=== PATIENT | male | born 1950 | race Caucasian/White ===

== ENCOUNTER 2018-03-14 01:36 | Outpatient (CLI) | payer MEDICARE, SELFPAY ==
[2018-03-14 12:44] LABS: Hemoglobin A1C 6.3 % (4.5-6.2)
== END 2018-03-14 01:56 ==
PROVIDERS: PCP Family Medicine; Visit Provider Family Medicine
DX: E11.9 Type 2 diabetes mellitus without complications (principal)
CPT/HCPCS: 36415; 83036

== ENCOUNTER 2018-09-06 11:21 | Outpatient (CLI) | payer MEDICARE, SELFPAY ==
[2018-09-06 13:34] LABS: Anion Gap 9.6 mmol/L (3-11); BUN 16 mg/dL (7-18); CO2 27.4 mmol/L (21.0-32.0); CREATININE 1.11 mg/dL (0.70-1.30); Calcium 9.4 mg/dL (8.5-10.1); Chloride 103 mmol/L (98-107); Glucose 135 mg/dL (70-100); Potassium 4.1 mmol/L (3.5-5.1); Sodium 140 mmol/L (136-145)
[2018-09-06 14:10] LABS: Hemoglobin A1C 6.6 % (4.5-6.2)
== END 2018-09-06 11:41 ==
PROVIDERS: PCP Family Medicine; Visit Provider Family Medicine
DX: E11.9 Type 2 diabetes mellitus without complications (principal); I10 Essential (primary) hypertension
CPT/HCPCS: 36415; 80048; 83036

== ENCOUNTER 2019-10-04 01:06 | Outpatient (CLI) | payer MEDICARE, SELFPAY ==
[2019-10-04 11:23] LABS: Calculated LDL 106 mg/dL (<100); Cholesterol 171 mg/dL (<200); HDL Cholesterol 48 mg/dL (40-60); Triglyceride 89 mg/dL (<150)
== END 2019-10-04 01:26 ==
PROVIDERS: PCP Family Medicine; Visit Provider Family Medicine
DX: I25.10 Atherosclerotic heart disease of native coronary artery without angina pectoris (principal); E11.9 Type 2 diabetes mellitus without complications
CPT/HCPCS: 36415; 80061

== ENCOUNTER 2020-08-13 03:37 | Outpatient (CLI) | payer MEDICARE, SELFPAY ==
[2020-08-13 12:53] LABS: Hemoglobin A1C 7.2 % (<5.7)
[2020-08-13 12:57] LABS: Calculated LDL 81 mg/dL (<100); Cholesterol 152 mg/dL (<200); HDL Cholesterol 48 mg/dL (40-60); Triglyceride 118 mg/dL (<150)
[2020-08-13 13:14] LABS: Magnesium 2.1 mg/dL (1.8-2.4); Vitamin B12 752 pg/mL (193-986)
[2020-08-13 21:58] LABS: PSA, Screening 0.7 ng/mL (0.0-4.5)
== END 2020-08-13 03:38 | disposition home or self-care (01) ==
LOC: LOS 03:37
PROVIDERS: PCP Nurse Practitioner Family; Visit Provider Internal Medicine Cardiovascular Disease
DX: E11.9 Type 2 diabetes mellitus without complications (principal); E78.9 Disorder of lipoprotein metabolism, unspecified; I25.10 Atherosclerotic heart disease of native coronary artery without angina pectoris; N13.8 Other obstructive and reflux uropathy; N40.1 Benign prostatic hyperplasia with lower urinary tract symptoms; Z12.5 Encounter for screening for malignant neoplasm of prostate; Z79.899 Other long term (current) drug therapy
CPT/HCPCS: 36415; 80061; 84153; 82607; 83036; 83735

== ENCOUNTER → 2020-09-05 08:34 | Outpatient (BNVA) | payer MEDICARE, SELFPAY | PROVIDERS: PCP Nurse Practitioner Family; Referring Provider Nurse Practitioner Family; Visit Provider Physical Therapy Assistant | DX: R09.89 Other specified symptoms and signs involving the circulatory and respiratory systems (principal); Z12.11 Encounter for screening for malignant neoplasm of colon; E11.9 Type 2 diabetes mellitus without complications; Z79.84 Long term (current) use of oral hypoglycemic drugs | CPT/HCPCS: 99203 ==

== ENCOUNTER 2020-09-14 23:43 | Inpatient (IN) | payer MEDICARE, SELFPAY ==
--- NOTE | 2020-09-14 23:30 | RT.EKG_ITS ---
APPROVED REPORT Exam: Resting ECG Patient Location: E HR:60 bpm ECG Measurements Heart Rate [address] 151 P 46 QRSd 100 QRS 85 QT 407 T 75 QTc 409 Conclusion Sinus rhythm...normal P axis, V-rate 60- 99 Normal [place] No STEMI I have reviewed and interpreted ECG and agree with software generated interpretation.
--- NOTE | 2020-09-14 23:44 | W.ED.GENAD ---
Discharge Plan Disposition Patient Disposition: [facility] INPATIENT Condition: Stable Discharge Details Clinical Impression: Acute non-ST elevation myocardial infarction (NSTEMI) Primary Care Provider: Serene Bales ED Provider: Jon Goldsmith Vernon Corey and New Rx's Prescriptions: No Action bisacodyl [Dulcolax (bisacodyl)] 5 mg tablet,delayed release (DR/EC) 5 mg PO ONCE Qty: 4 RF: 0 polyethylene glycol 3350 17 gram/dose powder 238 g PO ONCE Qty: 238 RF: 0 pneumococcal 23-susanna ps vaccine 25 mcg/0.5 mL solution 0.5 ml IM ONCE Qty: 0.5 RF: 0 amlodipine 5 mg tablet 5 mg PO QHS Qty: 90 RF: 4 tamsulosin 0.4 mg capsule 0.8 mg PO DAILY Qty: 180 RF: 4 atorvastatin 80 mg tablet 80 mg PO DAILY Qty: 90 RF: 4 clopidogrel [Plavix] 75 mg tablet 75 mg PO DAILY Qty: 90 RF: 4 nitroglycerin 0.4 mg tablet, sublingual 0.4 mg Sublingual PRN MDD 3 tab Qty: 90 RF: 4 metoprolol succinate 50 mg tablet extended release 24 hr 50 - 75 mg PO BID Qty: 230 RF: 4 ezetimibe [Zetia] 10 mg tablet 10 mg PO DAILY RF: 0 metformin 500 mg tablet 500 mg PO BID Qty: 180 RF: 4 aspirin [Aspir-81] 81 MG tablet,delayed release (DR/EC) 81 mg PO DAILY RF: 0 Medical Decision Making Patient presenting to ED with chest pressure radiating to the neck that started at rest. Similar event 2 nights ago. Has had increased exertional angina over the last couple weeks. Vital signs look good. Pulse strong. Lungs clear. No STEMI noted on EKG. IV established and laboratory studies obtained. Chest x-ray ordered. Aspirin and nitroglycerin given. 01:10 - Patient with elevated troponin consistent with NSTEMI. Pain-free after 2 sublingual nitroglycerin. Vital signs remained stable. Other laboratory studies are significant is elevated white count 14.5 and some renal insufficiency with a creatinine of 1.4. Potassium slightly up at 5.3, no EKG changes. Heparin per ACS protocol ordered. Nitroglycerin paste applied to chest wall. Call placed to [facility] to arrange for transfer. [facility] without floor or stepdown beds currently. Patient does not require ICU at [facility]. He is pain-free and stable so plan will be to keep here until bed available at [facility]. Per cardiology recommendations 300 mg of Plavix given. Nitropaste discontinued and nitroglycerin drip started so that can monitor need for escalating doses if recurrent chest pain which would be indication for urgent transfer. Patient and aware of plan. Patient not overly happy regarding needing to stay or be transferred. However, he is electing to stay at this point. Case discussed with hospitalist here and patient will be admitted to ICU for monitoring until bed available at [facility]. Medical Records Medical records reviewed: Yes I reviewed the patient's medical records. Medical records narrative: Status post three-vessel CABG with subsequent 3 stents over the course of years Imaging Data Radiologic Study: Attestation: I personally reviewed and interpreted this imaging study as follows: Imaging: X-Ray My impression: nothing acute Radiologist's impression: FINDINGS: Lungs: Unremarkable. No consolidation. Pleural spaces: Unremarkable. No pleural effusion. No pneumothorax. Heart/Mediastinum: Surgical clips within mediastinum. Bones/joints: Status post thoracotomy via mid sternotomy. IMPRESSION: No infiltrates or effusions. Dictated and Authenticated by: Matty Ivey MD. Lab Data Lab results reviewed: Yes I reviewed the patient's lab results. Lab results narrative: Positive troponin indicating NSTEMI. ECG Data Attestation: I personally reviewed and interpreted this ECG (s) as follows: Prior ECG tracings: not available for review Interpretation: see EKG HPI General Mode of arrival: ambulatory. Date/Time Provider Initiated Documentation: 09/14/20 23:44. Limitations to Documentation: no limitations. Information obtained by: patient, RN notes reviewed and old records reviewed. HPI Narrative: Patient presents to ED with complaint of chest pain. Patient was seen by his claim clinician down at [facility] mid-July. At that time he was doing well with minimal episodes of chest pain usually with exertion. He has had a three-vessel CABG and has 8 stents from previous catheterizations. Patient reports that in the last couple of weeks he has noticed more episodes of chest pain with less exertion. Typically, he is able to rest and it resolves. 2 nights ago he had angina/chest pain most of the night at rest. [place] good today but developed substernal chest pressure radiating to the neck while watching TV this evening. Took the last 2 nitroglycerin he had at home with no real relief. [place] okay while his was driving him here but had recurrent pain and pressure couple minutes prior to getting here. Developed nausea and vomited once here. Some diaphoresis at home. No shortness of breath. No fever or cough. No leg pain or leg swelling. Does not take his aspirin like he is supposed to. Does take his Plavix. Related Data Home Medications Medication Instructions Recorded Confirmed aspirin [Aspir 81] 81 mg PO DAILY 03/10/13 09/05/20 atorvastatin 80 mg tablet 80 mg PO DAILY #90 tab-cap 02/19/20 09/05/20 clopidogrel 75 mg tablet 75 mg PO DAILY #90 tab-cap 02/19/20 09/05/20 nitroglycerin 0.4 mg sublingual 0.4 mg SUBLINGUAL PRN #90 tab-cap 02/20/20 09/05/20 tablet MDD 3 tab ezetimibe 10 mg tablet 10 mg PO DAILY 05/29/20 09/05/20 metoprolol succinate 50 mg 50 - 75 mg PO BID #230 tab 05/29/20 09/05/20 tablet,extended release 24 hr amlodipine 5 mg tablet 5 mg PO QHS #90 tab 06/21/20 09/05/20 tamsulosin 0.4 mg capsule 0.8 mg PO DAILY #180 tab-cap 06/21/20 09/05/20 metformin 500 mg tablet 500 mg PO BID #180 tab-cap 08/23/20 09/05/20 bisacodyl 5 mg tablet,delayed 5 mg PO ONCE #4 tab 09/05/20 09/05/20 release polyethylene glycol 3350 17 238 g PO ONCE #238 g 09/05/20 09/05/20 gram/dose oral powder Previous Rx's Medication Instructions Recorded atorvastatin 80 mg tablet 80 mg PO DAILY #90 tab-cap 02/19/20 clopidogrel 75 mg tablet 75 mg PO DAILY #90 tab-cap 02/19/20 nitroglycerin 0.4 mg sublingual 0.4 mg SUBLINGUAL PRN #90 tab-cap 02/20/20 tablet MDD 3 tab metoprolol succinate 50 mg 50 - 75 mg PO BID #230 tab 05/29/20 tablet,extended release 24 hr amlodipine 5 mg tablet 5 mg PO QHS #90 tab 06/21/20 tamsulosin 0.4 mg capsule 0.8 mg PO DAILY #180 tab-cap 06/21/20 metformin 500 mg tablet 500 mg PO BID #180 tab-cap 08/23/20 bisacodyl 5 mg tablet,delayed 5 mg PO ONCE #4 tab 09/05/20 release polyethylene glycol 3350 17 238 g PO ONCE #238 g 09/05/20 gram/dose oral powder Allergies Allergy/AdvReac Type Severity Reaction Status Date / Time morphine AdvReac Nausea Unverified 09/05/20 08:36 Review of Systems Narrative: 02/27 Review of Systems completed and is negative except as stated above in HPI (Systems reviewed: Const, Eyes, ENT, Resp, CV, GI, , MSK, Skin, Neuro) [facility] Medical History CAD (coronary artery disease) Followed by [facility] [place] Cardiology Essential hypertension Gout Hearing loss Hyperlipidemia Obesity Type 2 diabetes mellitus Surgical History S/P appendectomy 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) KNIGHT to LAD, saphenous vein graft to OM and to PDA Family History Mother Stroke Father Diabetes Essential hypertension Heart disease Hyperlipidemia Stroke Sister No problems noted. Brother Diabetes Essential hypertension Hyperlipidemia Brother No problems noted. Son No problems noted. Daughter No problems noted. Daughter No problems noted. Maternal Grandfather , 65 Lung cancer Maternal Grandmother , 72 Diabetes Paternal Grandfather , 76 Stroke Paternal Grandmother , 95 No problems noted. Social History Smoking/Tobacco Use Status: Never Smoking risk assessment performed?: Yes Alcohol Intake: never Drug use: Never Substance use type: does not use Household members: spouse Pets and animals: Yes Pets and animals: cat(s) What type of physical activity do you participate in: none Special stephanie needs: No Do you feel safe at home: Yes Do you feel safe in your relationship?: Yes Exam Narrative Exam Narrative: Const: Obese male in NAD. HEENT: NC/AT. Normal facial exam. Eyes: Normal conjunctiva and sclera. Neck: Supple. Trachea midline. Lungs: Normal respiratory effort. Lungs are clear. Cor: RRR without murmur/gallop. Good radial pulses. GI: Soft. NT/ND. No guarding or rebound. Neuro: A+O x 3. Normal speech, mentation, gait. Cranial nerves II - XII grossly intact. No gross motor or sensory deficit. Ext: No C/C/E. No calf tenderness. Skin: Warm and dry without rash. Critical Care Time Critical Care Time Critical Care Time: Yes Total Critical Care Time: 45 Attestation: Upon my evaluation, this patient had a high probability of imminent or life-threatening deterioration, which required my direct attention, intervention, and personal management. I have personally provided 45 minutes of critical care time exclusive of time spent on separately billable procedures. Time includes review of laboratory data, radiology results, discussion with consultants, and monitoring for potential decompensation. Interventions were performed as documented above.
--- NOTE | 2020-09-14 23:45 | DI.RAD_ITS ---
Exam(s) XR PORTABLE CHEST AP EXAM: XR PORTABLE CHEST AP CLINICAL HISTORY: chest pain TECHNIQUE: 2D digital imaging was performed. COMPARISON: CR CHEST 2 VIEWS PA,LAT from 12/10/2014 CR,RF BARIUM SWALLOW W PA LAT CXR from 03/05/2016 FINDINGS: MEDIASTINUM: Normal. HEART: Normal. The patient is status post CABG. PULMONARY VASCULATURE: Normal. LUNGS: Clear. PLEURAL SPACE: No pleural effusion or pneumothorax. BONE:Within normal limits for the patient's age. OTHER FINDINGS:Normal. IMPRESSION: No acute pulmonary findings. DATA REPOSITORY: RADIATION DOSE DELIVERED:
[2020-09-14 23:50] VITALS: BP 130/68; PULSE 61; RESP 21; TEMP 36.3; O2SAT 100
[2020-09-14 23:59] VITALS: PULSE 59; RESP 23; O2SAT 99
[2020-09-15] VITALS (74 sets, daily range): BP systolic 101–139; BP diastolic 51–90; PULSE 49–80; RESP 0–33; TEMP 35.8–36.1; O2SAT 91–99
[2020-09-15 00:10] LABS: Abs Immature Grans 0.03 10^3/uL (0.0-0.06); Absolute Monocyte Count 1.56 10^3/uL (0.1-0.8); Basophils % 0.8; Eosinophils % 6.7; HCT 45.2 % (40.0-50.0); HGB 14.3 g/dL (13.5-17.5); Immature Grans % 0.2; Lymphocytes % 33.5; MCHC 31.6 % (32.0-36.0); MCV 85.4 fL (80-95); MPV 10.5 fL (8.0-11.0); Monocytes % 10.7; Neutrophils % 48.1; Nucleated RBC 0 %; Platelet Count 304 10^3/uL (130-400); RBC 5.29 10^6/uL (4.36-5.78); RDW 13.5 % (11.8-14.1); RDW-SD 42.4 fL; WBC 14.58 10^3/uL (4.4-10.8)
[2020-09-15 00:11] LABS: Absolute Basophil Count 0.12 10^3/uL (0.0-0.2); Absolute Eosinophil Count 0.98 10^3/uL (0.0-0.7); Absolute Lymphocyte Count 4.88 10^3/uL (1.2-3.4); Absolute Neutrophil Count 7.01 10^3/uL (1.2-6.7)
[2020-09-15 00:12] LABS: Diff Comment Agrees w/ Instrument; RBC Morphology Normal
[2020-09-15] MEDS: Aspirin 81 MG CHEW 324 MG CH (00:12)
[2020-09-15] MEDS: nitroGLYcerin 0.4 MG TAB SL ×2 (00:13→00:21)
[2020-09-15 00:32] LABS: ALT 32 U/L (16-63); AST 29 U/L (15-37); Albumin 3.7 g/dL (3.4-5.0); Alkaline Phosphatase 105 U/L (46-116); Anion Gap 11.5 mmol/L (3-11); BUN 23 mg/dL (7-18); Bilirubin, Total 0.5 mg/dL (0.2-1.0); CO2 25.5 mmol/L (21.0-32.0); CREATININE 1.4 mg/dL (0.70-1.30); Calcium 9.4 mg/dL (8.5-10.1); Chloride 104 mmol/L (98-107); Glucose 140 mg/dL (74-106); Magnesium 1.8 mg/dL (1.8-2.4); Potassium 5.3 mmol/L (3.5-5.1); Sodium 141 mmol/L (136-145); Total Protein 7.4 g/dL (6.4-8.2)
[2020-09-15 00:35] LABS: Troponin I 1.14 ng/mL (<0.06)
--- NOTE | 2020-09-15 00:52 | DI.VRAD_ITS ---
PROCEDURE INFORMATION: Exam: XR Chest Exam date and time: 09/14/2020 11:59 PM Age: 69 years old Clinical indication: Chest pain; Prior surgery; Additional info: Cardiac HX TECHNIQUE: Imaging protocol: XR of the chest. Views: 1 view. COMPARISON: RF BARIUM SWALLOW W PA LAT CXR 03/05/2016 9:08 AM FINDINGS: Lungs: Unremarkable. No consolidation. Pleural spaces: Unremarkable. No pleural effusion. No pneumothorax. Heart/Mediastinum: Surgical clips within mediastinum. Bones/joints: Status post thoracotomy via mid sternotomy. IMPRESSION: No infiltrates or effusions. Dictated and Authenticated by: Matty Ivey MD. Ordering:RAMANDEEP Webb MD
[2020-09-15] MEDS: Heparin 5,000 UNITS/ML VIAL 5000 UNITS (01:12)
[2020-09-15] MEDS: Clopidogrel 300 MG TAB PO (01:29)
[2020-09-15 01:32] LABS: Prothrombin Time 10.1 sec (9.3-11.0)
--- NOTE | 2020-09-15 01:32 | HPE_ITS ---
Date of service: 09/15/20 Time of Service: 01:33 Assessment and Plan Assessment and plan (1) Acute non-ST elevation myocardial infarction (NSTEMI): Start date: 09/15/20 Status: Acute Assessment and plan: This is a 69-year-old gentleman who was admitted through the ED with a non-STEMI and recent history of escalating exertional angina and then resting angina just prior to admission. Trended troponins has been revealing a slightly elevation in the troponin levels as he awaits transfer to [facility] for evaluation and treatment. He is asymptomatic and a slight trend may be secondary to the events prior to treatment with patient presently stable on heparin infusion and nitroglycerin infusion. He has slight alterations in his renal function being a diabetic and his potassium is slightly elevated possibly secondary to same renal insufficiency. He does have diabetes which is treated with oral therapy and is on maximum dose of statin. He has been loaded with aspirin and Plavix. He is awaiting bed with transfer accepted by Dr. Delaney. Patient will be transferred via ambulance with ACLS protocol when bed available. He is a full code. (2) CAD (coronary artery disease): Status: Chronic Assessment and plan: Patient has a significant history of CAD with initial diagnosis during an exercise stress test done because of his age. This resulted in CABG x3 and subsequent stenting with 8 stents by history through the ED. His risk factors have advanced and he is on treatment for risk factors with variable control. After evaluation and treatment patient needs to work harder on cardiovascular risk control. Qualifiers: Coronary Disease-Associated Artery/Lesion type: [place] artery [place] vs. transplanted heart: [place] heart Associated angina: with unstable angina Qualified Code(s): I25.110 - Atherosclerotic heart disease of [place] coronary artery with unstable angina pectoris (3) Type 2 diabetes mellitus: Status: Chronic Assessment and plan: Will hold Metformin and initiate IV hydration with slight renal sufficiency. Glucometers before meals and at bedtime with sliding scale short acting insulin coverage. Qualifiers: Diabetes mellitus director long term care insulin use: without chcf use Diabetes mellitus complication status: with circulatory complication Diabetes mellitus complication detail: with other circulatory complications Qualified Code(s): E11.59 - Type 2 diabetes mellitus with other circulatory complications (4) Essential hypertension: Status: Chronic Assessment and plan: Controlled with patient on beta-heather which will be continued as split dose. History of Present Illness History of Present Illness Chief Complaint: Chest pain with associated symptoms Narrative: This is a 69-year-old male patient who presented to ED with a 2-week history of increasing episodes of exertional chest pain and 2 days prior to admission resting chest pain with associated symptoms which occurred in the evening and most of the night. The day of admission the patient had substernal chest pressure radiating into his neck in the evening while watching TV. He to ok his last 2 nitroglycerin at home and felt no relief. In the ED had 2 nitroglycerin sublingually which gave him complete relief of his chest pressure and pain. He was driven to the ED by his . The patient did have nausea with vomiting in the ED and slight diaphoresis at home but no dyspnea, fever or cough. He has had no recent edema though he has gained about 15 pounds over the last couple of months. He has been having less activity. Patient last saw his data base administrator at [facility] July 2020. At that time he was having minimal episodes of exertional chest pressure. 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 Stress test was positive and he was seen at [facility] immediately with eventual CABG x3 with this being more than a decade ago. Since then he has had subsequent studies with [address] [facility]. His cardiac risk factors include hypertension and diabetes as well as truncal obesity. He is more sedentary recently since r etired. The patient was seen in the ED and found to have a normal EKG but positive troponins with slightly elevated WBC and slightly elevated potassium level with elevation of his creatinine. He was admitted for IV heparin infusion after loading dose of Plavix with patient already on Plavix chronically and loading dose of aspirin with patient already on aspirin chronically. The patient was also initiated on a nitroglycerin drip though he was chest pain-free. He was placed on Nitropaste initially in the ED. He does take atorvastatin at the maximum dose. He was accepted at [facility] by Dr. Delaney and is awaiting an opening bed for transfer. He is a full code. Review of Systems Narrative: 13 point review of systems otherwise unrevealing or stable. [facility] Medical History CAD (coronary artery disease) Followed by [facility] Cardiology Essential hypertension Gout Hearing loss Hyperlipidemia Obesity Type 2 diabetes mellitus Surgical History S/P appendectomy 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) KNIGHT to LAD, saphenous vein graft to OM and to PDA Family History Mother Stroke Father Diabetes Essential hypertension Heart disease Hyperlipidemia Stroke Sister No problems noted. Brother Diabetes Essential hypertension Hyperlipidemia Brother No problems noted. Son No problems noted. Daughter No problems noted. Daughter No problems noted. Maternal Grandfather , 65 Lung cancer Maternal Grandmother , 72 Diabetes Paternal Grandfather , 76 Stroke Paternal Grandmother , 95 No problems noted. Social History Smoking/Tobacco Use Status: Never Smoking risk assessment performed?: Yes Alcohol Intake: never Drug use: Never Substance use type: does not use Household members: spouse Pets and animals: Yes Pets and animals: cat(s) What type of physical activity do you participate in: none Special stephanie needs: No Do you feel safe at home: Yes Do you feel safe in your relationship?: Yes Meds Allergies and Home Medications Allergies Allergy/AdvReac Type Severity Reaction Status Date / Time morphine AdvReac Nausea Unverified 09/15/20 01:31 Home Medications Medication Instructions Recorded Confirmed Type pneumococcal 23-susanna ps vaccine 25 0.5 ml IM ONCE #0.5 ml 03/10/19 Clinic mcg/0.5 mL injection solution atorvastatin 80 mg tablet 80 mg PO DAILY #90 tab-cap 02/19/20 09/15/20 Rx clopidogrel 75 mg tablet 75 mg PO DAILY #90 tab-cap 02/19/20 09/15/20 Rx nitroglycerin 0.4 mg sublingual 0.4 mg SUBLINGUAL PRN #90 tab-cap 02/20/20 09/15/20 Rx tablet MDD 3 tab ezetimibe 10 mg tablet 10 mg PO DAILY 05/29/20 09/15/20 History metoprolol succinate 50 mg 50 - 75 mg PO BID #230 tab 05/29/20 09/15/20 Rx tablet,extended release 24 hr tamsulosin 0.4 mg capsule 0.8 mg PO DAILY #180 tab-cap 06/21/20 09/15/20 Rx metformin 500 mg tablet 500 mg PO BID #180 tab-cap 08/23/20 09/15/20 Rx amlodipine 5 mg PO BID 09/15/20 09/15/20 History Exam Narrative Exam Narrative: General: Patient appears appropriate for age, alert and oriented x3 and in no acute distress. He is moderately obese especially over the trunk. HEENT: Normocephalic, eyes with pupils equal and reactive to light symmetrically, extraocular movement intact and sclera anicteric oropharynx with normal mucosa Neck: Supple without JVD or auscultated bruits. Back: Stooped posture without CVA tenderness. Lungs: Clear to auscultation and percussion. Heart: Regular rate and rhythm with 3/6 systolic murmur over upper left sternal border. No gallops or rubs. Abdomen: Obese contour, soft nontender to palpation with no palpable hepatosplenomegaly. Bowel sounds positive all quadrants. Genitalia/rectal: Exam deferred. Extremities: Without clubbing, cyanosis or edema with peripheral pulses intact. Joints have fair range of motion. Skin: Normal color, warm and dry. Neuro: Cranial nerves II through XII gross intact, no focalized motor deficits. Psych: Normal affect and mood, no abnormal thought processes. Remote and recent memory intact. Results Imaging Imaging Studies: Exam: XR Chest Exam date and time: 09/14/2020 11:59 PM Age: 69 years old Clinical indication: Chest pain; Prior surgery; Additional info: Cardiac HX TECHNIQUE: Imaging protocol: XR of the chest. Views: 1 view. COMPARISON: RF BARIUM SWALLOW W PA LAT CXR 03/05/2016 9:08 AM FINDINGS: Lungs: Unremarkable. No consolidation. Pleural spaces: Unremarkable. No pleural effusion. No pneumothorax. Heart/Mediastinum: Surgical clips within mediastinum. Bones/joints: Status post thoracotomy via mid sternotomy. IMPRESSION: No infiltrates or effusions. Dictated and Authenticated by: Matty Ivey MD. Labs Result diagrams: 09/15/20 06:20 09/15/20 06:20 Labs: Laboratory Results - last 24 hr 09/15/20 09/15/20 00:00 00:00 WBC 14.58 H RBC 5.29 Hgb 14.3 Hct 45.2 MCV 85.4 MCH 27.0 MCHC 31.6 L RDW 13.5 Plt Count 304 MPV 10.5 Immature Gran % 0.2 Neutrophils % 48.1 Lymphocytes % 33.5 Monocytes % 10.7 Eosinophils % 6.7 Basophils % 0.8 Nucleated RBC % 0 Absolute Neutrophils 7.01 H Absolute Lymphocytes 4.88 H Absolute Monocytes 1.56 H Absolute Eosinophils 0.98 H Absolute Basophils 0.12 RBC Morphology Normal Sodium 141 Potassium 5.3 H Chloride 104 Carbon Dioxide 25.5 Anion Gap 11.5 H BUN 23 H Creatinine 1.4 H Estimated GFR/1.73 m2 50.40 Glucose 140 H Calcium 9.4 Magnesium 1.8 Total Bilirubin 0.5 AST 29 ALT 32 Alkaline Phosphatase 105 Troponin I 1.14 H* Total Protein 7.4 Albumin 3.7 Last Vital Signs Temp 36.3 C L 09/14/20 23:50 Pulse 70 09/15/20 00:26 Resp 20 09/15/20 00:18 BP 114/60 09/15/20 00:26 Pulse Ox 95 09/15/20 00:15 COVID-19 Screening Have you, or household traveled for leisure in last 14 days?: No Had IN PERSON contact w/suspected or confirmed C-19 person: No
[2020-09-15 02:24] LABS: Source Nasal/Nares
[2020-09-15 02:42] LABS: Troponin I 1.66 ng/mL (<0.06)
[2020-09-15] MEDS: Metoprolol 50 MG TAB PO ×2 (05:41→14:22)
[2020-09-15 06:41] LABS: Abs Immature Grans 0.02 10^3/uL (0.0-0.06); Absolute Basophil Count 0.09 10^3/uL (0.0-0.2); Absolute Eosinophil Count 0.21 10^3/uL (0.0-0.7); Absolute Lymphocyte Count 3.57 10^3/uL (1.2-3.4); Absolute Monocyte Count 0.75 10^3/uL (0.1-0.8); Absolute Neutrophil Count 6.04 10^3/uL (1.2-6.7); Basophils % 0.8; HCT 41.9 % (40.0-50.0); HGB 13.3 g/dL (13.5-17.5); Immature Grans % 0.2; Lymphocytes % 33.4; MCH 26.9 pg (27.0-33.0); MCHC 31.7 % (32.0-36.0); MCV 84.6 fL (80-95); MPV 10.4 fL (8.0-11.0); Neutrophils % 56.6; Nucleated RBC 0 %; Platelet Count 274 10^3/uL (130-400); RBC 4.95 10^6/uL (4.36-5.78); RDW 13.4 % (11.8-14.1); RDW-SD 41.3 fL; WBC 10.68 10^3/uL (4.4-10.8)
[2020-09-15 06:57] LABS: Calculated LDL 55 mg/dL (<100); Cholesterol 112 mg/dL (<200); HDL Cholesterol 45 mg/dL (40-60); Triglyceride 60 mg/dL (<150)
[2020-09-15 06:58] LABS: ALT 29 U/L (16-63); AST 26 U/L (15-37); Albumin 3.5 g/dL (3.4-5.0); Alkaline Phosphatase 93 U/L (46-116); Anion Gap 11.1 mmol/L (3-11); BUN 23 mg/dL (7-18); Bilirubin, Total 0.5 mg/dL (0.2-1.0); CO2 24.9 mmol/L (21.0-32.0); CREATININE 1.2 mg/dL (0.70-1.30); Chloride 105 mmol/L (98-107); Glucose 121 mg/dL (74-106); Potassium 4.3 mmol/L (3.5-5.1); Sodium 141 mmol/L (136-145)
[2020-09-15 07:05] LABS: Troponin I 3.66 ng/mL (<0.06)
[2020-09-15 07:45] LABS: PTT Activated 47.8 sec (21.0-27.5)
[2020-09-15] MEDS: Clopidogrel 75 MG TAB PO (08:24)
[2020-09-15] MEDS: Tamsulosin 0.4 MG CAPCR 0.8 MG PO (08:24)
[2020-09-15] MEDS: Aspirin E.C. 81 MG TABEC PO (08:24)
[2020-09-15] MEDS: Ezetimibe 10 MG TAB PO (08:24)
[2020-09-15 10:23] LABS: Troponin I 5.46 ng/mL (<0.06)
--- NOTE | 2020-09-15 10:51 | DSE_ITS ---
Date of service: 09/15/20 Time of Service: 10:51 DS: Diagnosis Discharge Diagnosis (1) Acute non-ST elevation myocardial infarction (NSTEMI): Status: Acute (2) CAD (coronary artery disease): Status: Chronic (3) Type 2 diabetes mellitus: Status: Chronic (4) Essential hypertension: Status: Chronic Discharge Plan Disposition Patient Disposition: [facility] Condition: Stable Discharge Details Reason For Visit: NSTEMI, CAD, NIDDM, HTN Admit Date/Time: 09/15/20 01:18 Admit Provider: Tobias Hoffmann Attending Provider: Tobias Hoffmann Primary Care Provider: [facility] Hospital Course: This is a 69-year-old male patient who presented to ED with a 2-week history of increasing episodes of exertional chest pain and 2 days prior to admission resting chest pain with associated symptoms which occurred in the evening and most of the night. The day of admission the patient had substernal chest pressure radiating into his neck in the evening while watching TV. He took his last 2 nitroglycerin at home and felt no relief. In the ED had 2 nitroglycerin sublingually which gave him complete relief of his chest pressure and pain. He was driven to the ED by his . The patient did have nausea with vomiting in the ED and slight diaphoresis at home but no dyspnea, fever or cough. He has had no recent edema though he has gained about 15 pounds over the last couple of months. He has been having less activity. Patient last saw his conference manager at [facility] July 2020. At that time he was having minimal episodes of exertional chest pressure. 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 Stress test was positive and he was seen at [facility] immediately with eventual CABG x3 with this being more than a decade ago. Since then he has had subsequent studies with 8 stents at [facility]. His cardiac risk factors include hypertension and diabetes as well as truncal obesity. He is more sedentary recently since retired. The patient was seen in the ED and found to have a normal EKG but positive troponins with slightly elevated WBC and slightly elevated potassium level with elevation of his creatinine. He was admitted for IV heparin infusion after loading dose of Plavix with patient already on Plavix chronically and loading dose of aspirin with patient already on aspirin chronically. The patient was also initiated on a nitroglycerin drip though he was chest pain-free. He was placed on Nitropaste initially in the ED. He does take atorvastatin at the maximum dose. He was accepted at [facility] by Dr. Delaney and is awaiting an opening bed for transfer. He is a full code. Troponin trend: 1.14 > 1.66 > 3.66 > 5.46 Patient has remained chest pain free, without palpitations. He remains on a heprin and a nitroglycerin drip. VSS. Transferring to [facility] for further cardiology evaluation / treatment. Home Meds and New Rx's Prescriptions: No Action pneumococcal 23-susanna ps vaccine 25 mcg/0.5 mL solution 0.5 ml IM ONCE Qty: 0.5 RF: 0 tamsulosin 0.4 mg capsule 0.8 mg PO DAILY Qty: 180 RF: 4 atorvastatin 80 mg tablet 80 mg PO DAILY Qty: 90 RF: 4 clopidogrel [Plavix] 75 mg tablet 75 mg PO DAILY Qty: 90 RF: 4 nitroglycerin 0.4 mg tablet, sublingual 0.4 mg Sublingual PRN MDD 3 tab Qty: 90 RF: 4 metoprolol succinate 50 mg tablet extended release 24 hr 50 - 75 mg PO BID Qty: 230 RF: 4 ezetimibe [Zetia] 10 mg tablet 10 mg PO DAILY RF: 0 metformin 500 mg tablet 500 mg PO BID Qty: 180 RF: 4 amlodipine 5 mg Tablet 5 mg PO BID RF: 0 Discharge Instructions Activity:: Bedrest Diet:: Currently NPO DS: Summary Time Spent with Patient providing and/or coordinating discharge services: Greater than 30 minutes Status at Discharge Functional status at discharge: independent ambulation (Currently with bedrest orders) Overall status at discharge: patient is not back to baseline Mental Status: mental status grossly normal Speech and Movement: speech and movement normal Mood: congruent mood Affect: normal affect Exam Const General: cooperative and no acute distress Nutritional Appearance: obese Orientation: alert and oriented x3 Eyes Sclera: sclerae normal Pupils: PERRL Neck Neck: full ROM and no JVD Chest Chest: normal palpation of entire chest wall Resp Effort & Inspection: normal respiratory effort Auscultation: clear to auscultation bilaterally Cardio Rate: regular rate Rhythm: regular rhythm Heart Sounds: S1 normal and S2 normal GI Palpation: soft and nontender Neuro General: no focal motor deficits Cognition: normal cognition Speech: speech normal Extrem General: no pedal edema and no calf tenderness Psych Appearance: grossly normal Mental Status: mental status grossly normal Speech and Movement: speech and movement normal Mood: congruent mood Affect: normal affect DS: Data Vitals/I&O Vitals and I&O: Vital Signs Temperature 35.8 C L 09/15/20 07:29 Temperature Source Temporal Artery Scan 09/15/20 07:29 Pulse 52 L 09/15/20 08:01 Pulse Rhythm Regular 09/15/20 02:00 Pulse Strength Normal 09/15/20 02:00 Pulse 54 L 09/15/20 08:01 Respiratory Rate 22 09/15/20 08:01 Respiratory Effort Non-Labored 09/15/20 07:29 Respiratory Depth Normal 09/15/20 07:29 Respiratory Pattern Normal 09/15/20 07:29 Blood Pressure 134/67 09/15/20 08:01 Blood Pressure Mean 84 09/15/20 08:01 Blood Pressure Position Supine 09/15/20 07:29 Pulse Oximetry 96 09/15/20 07:29 Oxygen Delivery Method Room Air 09/15/20 07:29 Oxygen Flow Rate 0 09/15/20 07:29 Pain Level 0 09/15/20 07:29 Intake & Output 09/14/20 09/14/20 09/15/20 11:59 23:59 11:59 Output Total 350 / 350 Balance -350 / -350 Weight 98 kg 90.7 kg Output: Urine 350 / 350 Other: Urine Color Light Latha Urine Appearance Clear Urine Odor Normal Comment Mixed with stool. Stool Size Small Stool Characteristics Soft Formed Voiding Methods Bedside Commode Data Completed and Pending Labs on day of discharge: Labs from last 24 hours 09/15/20 09/15/20 09/15/20 10:08 10:00 06:20 WBC RBC Hgb Hct MCV MCH MCHC RDW Plt Count MPV Immature Gran % Neutrophils % Lymphocytes % Monocytes % Eosinophils % Basophils % Nucleated RBC % Absolute Neutrophils Absolute Lymphocytes Absolute Monocytes Absolute Eosinophils Absolute Basophils RBC Morphology PT INR APTT 47.8 H D Sodium Potassium Chloride Carbon Dioxide Anion Gap BUN Creatinine Estimated GFR/1.73 m2 Glucose Calcium Magnesium Total Bilirubin AST ALT Alkaline Phosphatase Troponin I Pending 5.46 H* Total Protein Albumin Triglycerides Total Cholesterol LDL Cholesterol, Calc HDL Cholesterol COVID-19 Source SARS-CoV-2 (PCR) 09/15/20 09/15/20 09/15/20 06:20 06:20 06:20 WBC 10.68 RBC 4.95 Hgb 13.3 L Hct 41.9 MCV 84.6 MCH 26.9 L MCHC 31.7 L RDW 13.4 Plt Count 274 MPV 10.4 Immature Gran % 0.2 Neutrophils % 56.6 Lymphocytes % 33.4 Monocytes % 7.0 Eosinophils % 2.0 Basophils % 0.8 Nucleated RBC % 0 Absolute Neutrophils 6.04 Absolute Lymphocytes 3.57 H Absolute Monocytes 0.75 Absolute Eosinophils 0.21 Absolute Basophils 0.09 RBC Morphology PT INR APTT Sodium 141 Potassium 4.3 Chloride 105 Carbon Dioxide 24.9 Anion Gap 11.1 H BUN 23 H Creatinine 1.2 Estimated GFR/1.73 m2 >= 60.00 Glucose 121 H Calcium 9.0 Magnesium Total Bilirubin 0.5 AST 26 ALT 29 Alkaline Phosphatase 93 Troponin I 3.66 H* Total Protein 7.0 Albumin 3.5 Triglycerides Total Cholesterol LDL Cholesterol, Calc HDL Cholesterol COVID-19 Source SARS-CoV-2 (PCR) 09/15/20 09/15/20 09/15/20 06:20 02:20 01:55 WBC RBC Hgb Hct MCV MCH MCHC RDW Plt Count MPV Immature Gran % Neutrophils % Lymphocytes % Monocytes % Eosinophils % Basophils % Nucleated RBC % Absolute Neutrophils Absolute Lymphocytes Absolute Monocytes Absolute Eosinophils Absolute Basophils RBC Morphology PT INR APTT Sodium Potassium Chloride Carbon Dioxide Anion Gap BUN Creatinine Estimated GFR/1.73 m2 Glucose Calcium Magnesium Total Bilirubin AST ALT Alkaline Phosphatase Troponin I 1.66 H* Total Protein Albumin Triglycerides 60 Total Cholesterol 112 LDL Cholesterol, Calc 55 HDL Cholesterol 45 COVID-19 Source Nasal/nares SARS-CoV-2 (PCR) Pending 09/15/20 09/15/20 09/15/20 00:00 00:00 00:00 WBC 14.58 H RBC 5.29 Hgb 14.3 Hct 45.2 MCV 85.4 MCH 27.0 MCHC 31.6 L RDW 13.5 Plt Count 304 MPV 10.5 Immature Gran % 0.2 Neutrophils % 48.1 Lymphocytes % 33.5 Monocytes % 10.7 Eosinophils % 6.7 Basophils % 0.8 Nucleated RBC % 0 Absolute Neutrophils 7.01 H Absolute Lymphocytes 4.88 H Absolute Monocytes 1.56 H Absolute Eosinophils 0.98 H Absolute Basophils 0.12 RBC Morphology Normal PT 10.1 INR 1.0 APTT 23.0 Sodium 141 Potassium 5.3 H Chloride 104 Carbon Dioxide 25.5 Anion Gap 11.5 H BUN 23 H Creatinine 1.4 H Estimated GFR/1.73 m2 50.40 Glucose 140 H Calcium 9.4 Magnesium 1.8 Total Bilirubin 0.5 AST 29 ALT 32 Alkaline Phosphatase 105 Troponin I 1.14 H* Total Protein 7.4 Albumin 3.7 Triglycerides Total Cholesterol LDL Cholesterol, Calc HDL Cholesterol COVID-19 Source SARS-CoV-2 (PCR) [facility] Medical History CAD (coronary artery disease) Followed by [facility] Cardiology Essential hypertension Gout Hearing loss Hyperlipidemia Obesity Type 2 diabetes mellitus Surgical History S/P appendectomy 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) KNIGHT to LAD, saphenous vein graft to OM and to PDA Family History Mother Stroke Father Diabetes Essential hypertension Heart disease Hyperlipidemia Stroke Sister No problems noted. Brother Diabetes Essential hypertension Hyperlipidemia Brother No problems noted. Son No problems noted. Daughter No problems noted. Daughter No problems noted. Maternal Grandfather , 65 Lung cancer Maternal Grandmother , 72 Diabetes Paternal Grandfather , 76 Stroke Paternal Grandmother , 95 No problems noted. Social History Smoking/Tobacco Use Status: Never Smoking risk assessment performed?: Yes Alcohol Intake: never Drug use: Never Substance use type: does not use Household members: spouse Pets and animals: Yes Pets and animals: cat(s) What type of physical activity do you participate in: none Special stephanie needs: No Do you feel safe at home: Yes Do you feel safe in your relationship?: Yes
[2020-09-15] MEDS: Lactated Ringers 1,000 ML 80 ML IV (11:02)
[2020-09-15 12:17] LABS: COVID-19 PCR Negative (Negative)
--- NOTE | 2020-09-15 12:24 | CMPROGNOTE_ITS ---
Care Management Progress Note Roberto was admitted while awaiting [place] [facility] was accepted from the ED pending bed availability due to NSTEMI. He will transport via EMS, coordinated by RN nitroglycerin supervisor.
--- NOTE | 2020-09-15 12:24 | PDOC.CMPRO ---
Care Management Progress Note Roberto was admitted while awaiting transfer [place] [facility], he was accepted from the ED pending bed availability due to NSTEMI. He will transport via EMS, coordinated by RN furniture assembly supervisor.
[2020-09-15 16:00] LABS: Troponin I 7.34 ng/mL (<0.06)
--- NOTE | 2020-09-15 16:00 | RT.EKG_ITS ---
APPROVED REPORT Exam: Resting ECG Patient Location: I HR:53 bpm ECG Measurements Heart Rate 53 AXIS SD 157 P 47 QRSd 100 QRS 75 QT 448 T -13 QTc 421 Conclusion Sinus bradycardia...rate< 60
[2020-09-15 19:41] LABS: Troponin I 6.47 ng/mL (<0.06)
== END 2020-09-15 19:20 | disposition short-term general hospital (02) | DRG 282 ==
LOC: ER 09-15 01:29 → ICU 09-15 02:31
PROVIDERS: Family Medicine; Admitting Provider Family Medicine; Emergency Provider Emergency Medicine; PCP Nurse Practitioner Family; Visit Provider Family Medicine
DX: I21.4 Non-ST elevation (NSTEMI) myocardial infarction (principal); I10 Essential (primary) hypertension; I25.110 Atherosclerotic heart disease of native coronary artery with unstable angina pectoris; H91.90 Unspecified hearing loss, unspecified ear; E11.59 Type 2 diabetes mellitus with other circulatory complications; M10.9 Gout, unspecified; E66.9 Obesity, unspecified; Z20.822 Contact with and (suspected) exposure to COVID-19; E78.5 Hyperlipidemia, unspecified; Z79.84 Long term (current) use of oral hypoglycemic drugs; Z68.33 Body mass index [BMI] 33.0-33.9, adult; Z95.1 Presence of aortocoronary bypass graft; Z95.5 Presence of coronary angioplasty implant and graft
CPT/HCPCS: 36415; 80053; 80061; 87635; 93005; 96365; 96368; 96376; 99291; 71045; 83735; 84484; 85025; 85610; 85730; 93010; 99223; 99239; J1644

== ENCOUNTER 2021-08-14 17:09 | Outpatient (REF) | payer MEDICARE, SELFPAY ==
[2021-08-14 14:52] LABS: Hemoglobin A1C 6.6 % (<5.7)
[2021-08-14 15:18] LABS: BUN 12 mg/dL (7-18); Calcium 8.9 mg/dL (8.5-10.1); Calculated LDL 56 mg/dL (<100); Chloride 105 mmol/L (98-107); Cholesterol 131 mg/dL (<200); Glucose 145 mg/dL (74-106); HDL Cholesterol 45 mg/dL (40-60); Potassium 4.3 mmol/L (3.5-5.1); Sodium 139 mmol/L (136-145); Triglyceride 150 mg/dL (<150)
== END 2021-08-14 17:10 | disposition home or self-care (01) ==
LOC: LBN 17:09
PROVIDERS: PCP Nurse Practitioner Family; Visit Provider Nurse Practitioner Family
DX: E11.59 Type 2 diabetes mellitus with other circulatory complications (principal); I25.110 Atherosclerotic heart disease of native coronary artery with unstable angina pectoris; E66.9 Obesity, unspecified
CPT/HCPCS: 80048; 80061; 83036

== ENCOUNTER 2022-08-27 01:48 | Outpatient (CLI) | payer MEDICARE, SELFPAY ==
[2022-08-27 12:15] LABS: Anion Gap 6.4 mmol/L (3-11); BUN 21 mg/dL (7-18); CO2 27.6 mmol/L (21.0-32.0); CREATININE 1.2 mg/dL (0.70-1.30); Calcium 9.3 mg/dL (8.5-10.1); Chloride 106 mmol/L (98-107); Estimated GFR 65.06 (mL/min/1.73m2); Glucose 181 mg/dL (74-106); Potassium 4.1 mmol/L (3.5-5.1); Sodium 140 mmol/L (136-145)
[2022-08-27 12:20] LABS: Hemoglobin A1C 6.7 % (<5.7)
== END 2022-08-27 01:49 | disposition home or self-care (01) ==
LOC: LOS 01:48
PROVIDERS: PCP Nurse Practitioner Family; Visit Provider Nurse Practitioner Family
DX: E11.9 Type 2 diabetes mellitus without complications (principal); I10 Essential (primary) hypertension; I25.10 Atherosclerotic heart disease of native coronary artery without angina pectoris; R42 Dizziness and giddiness
CPT/HCPCS: 36415; 80048; 83036

== ENCOUNTER 2023-08-20 11:27 | Outpatient (CLI) | payer MEDICARE, SELFPAY ==
[2023-08-20 12:23] LABS: Abs Immature Grans 0.02 10^3/uL (0.0-0.06); Absolute Basophil Count 0.09 10^3/uL (0.0-0.2); Absolute Eosinophil Count 0.63 10^3/uL (0.0-0.7); Absolute Lymphocyte Count 2.76 10^3/uL (1.2-3.4); Absolute Monocyte Count 0.95 10^3/uL (0.1-0.8); Absolute Neutrophil Count 3.84 10^3/uL (1.2-6.7); Basophils % 1.1; Eosinophils % 7.6; HCT 47.6 % (40.0-50.0); HGB 15.1 g/dL (13.5-17.5); Immature Grans % 0.2; Lymphocytes % 33.3; MCH 26.9 pg (27.0-33.0); MCHC 31.7 % (32.0-36.0); MCV 85 fL (80-95); MPV 9.7 fL (8.0-11.0); Monocytes % 11.5; Neutrophils % 46.3; Platelet Count 291 10^3/uL (130-400); RBC 5.62 10^6/uL (4.36-5.78); RDW 13.7 % (11.8-14.1); RDW-SD 42.6 fL; WBC 8.29 10^3/uL (4.4-10.8)
[2023-08-20 12:55] LABS: Microalb ug/mg Crea 33.8 ug/mg Cr
[2023-08-20 13:10] LABS: ALT 24 U/L (16-63); AST 19 U/L (15-37); Albumin 3.7 g/dL (3.4-5.0); Alkaline Phosphatase 90 U/L (46-116); Anion Gap 10.3 mmol/L (3-11); BUN 14 mg/dL (7-18); Bilirubin, Total 0.4 mg/dL (0.2-1.0); CO2 26.7 mmol/L (21.0-32.0); Calcium 9.5 mg/dL (8.5-10.1); Calculated LDL 101 mg/dL (<100); Chloride 107 mmol/L (98-107); Cholesterol 181 mg/dL (<200); Estimated GFR 80.47 (mL/min/1.73m2); Glucose 105 mg/dL (74-106); HDL Cholesterol 52 mg/dL (40-60); Potassium 4.6 mmol/L (3.5-5.1); Sodium 144 mmol/L (136-145); TSH (W/Ref FT4) 2.61 uIU/mL (0.36-3.74); Total Protein 7.9 g/dL (6.4-8.2); Triglyceride 144 mg/dL (<150)
[2023-08-20 13:23] LABS: Lab Add On Test DONE
[2023-08-20 14:05] LABS: Vitamin B12 296 pg/mL (193-986)
[2023-08-20 18:01] LABS: PSA, Screening 1.3 ng/mL (<=6.5)
[2023-08-21 09:32] LABS: Hepatitis C Ab w Rflx HCV PCR Negative (Negative)
== END 2023-08-20 11:28 | disposition home or self-care (01) ==
LOC: LOS 11:27
PROVIDERS: PCP Nurse Practitioner Family; Referring Provider Nurse Practitioner Family; Visit Provider Nurse Practitioner Family
DX: Z00.00 Encounter for general adult medical examination without abnormal findings (principal); Z12.5 Encounter for screening for malignant neoplasm of prostate; E78.5 Hyperlipidemia, unspecified; I25.110 Atherosclerotic heart disease of native coronary artery with unstable angina pectoris; E11.59 Type 2 diabetes mellitus with other circulatory complications
CPT/HCPCS: 36415; 80053; 80061; 84153; 86803; 82043; 82570; 82607; 84443; 85025

== ENCOUNTER → 2023-08-26 01:25 | Outpatient (CLI) | payer MEDICARE, SELFPAY ==
--- NOTE | 2023-08-26 08:00 | DI.RAD_ITS ---
Exam(s) XR CHEST 2V PA LATERAL EXAM: XR CHEST 2V PA LATERAL CLINICAL HISTORY: dyspnea on exertion,r06.09,cad,i25.110 TECHNIQUE: 2D digital imaging was performed of the chest. Two images were obtained. PA and lateral views were obtained. COMPARISON: CR,XR XR PORTABLE CHEST AP from 09/15/2020 FINDINGS: MEDIASTINUM: Normal. HEART: Normal. Status post CABG. PULMONARY VASCULATURE: Normal. LUNGS: Clear. PLEURAL SPACE: No pleural effusion or pneumothorax. BONE:Within normal limits for the patient's age. Sternal wires are in place. OTHER FINDINGS:Normal. IMPRESSION: No acute pulmonary findings. DATA REPOSITORY: RADIATION DOSE DELIVERED:
--- NOTE | 2023-08-26 08:00 | DI.NM_ITS ---
APPROVED REPORT Exam: Pharmacologic Patient Location: Out-Patient Room/Bed: Stress Nurse: Nataliia Way RN Ordering Provider:CESILIA MELARA, Contact Number: [phone] BMI: 33.24 Baseline Rhythm: Sinus Bradycardia Indications: Worsening ZUNIGA, hx of CAD Medical History Medical History: CAD, DMT2, HTN, HLD, obesity Cardiac Medications: Metoprolol succinate, amlodipine, atorvastatin, zetia, aspirin, plavix, metformi n, tamsulosin Allergies: Morphine Cardiac Risk Factors: Family hx, HTN, HLD, Diabetes, obesity Previous Cardiac Procedures: CABG x3-2005, NSTEMI-2020 s/p SARA x2 Pretest Chest Pain Characteristics: None Exercise History: Sedentary Physical Disabilities: Leg weakness/heaviness Lung Sounds: Clear to auscultation Heart Sounds: Bradycardia Stress Test Details Test: Pharmacologic stress was paired with low level exercise. Reason for pharmacologic stress test: physical limitation. Nuclear Acquisition: Rest Tc-99m/Stress Tc-99m 1 day Rest Isotope: Tc-99m Sestamibi. Dose: 10.0 Date: 08/26/2023 Injection Time: 1200 Stress Isotope: Tc-99m Sestamibi. Dose: 30.0 Date: 08/26/2023 Injection Time: 1445 HR Resting HR Supine: 50 bpm Max Heart Rate (APMHR): 149.706187 bpm Resting HR Standin bpm Target HR (85% APMHR): 126.738059 bpm Max HR Achieved: 108 bpm % of APMHR: 72.48 Recovery HR: 67 bpm BP Resting BP Supine: 158/78 mmHg Resting BP Standin/72 mmHg Max BP: 158/78 mmHg Recovery BP: 150/76 mmHg ECG Resting ECG: Sinus Bradycardia Ectopy: Rare PVC Stress ECG: Sinus Tachycardia ST Change: Nondiagnostic low heart rate Arrhythmia: None Recovery ECG: Sinus Rhythm Recovery ST Change: Nondiagnostic low heart rate Recovery Arrhythmia: None Clinical Stress Symptoms: Mild SOB Angina Score: None Rate Pressure Product: [id number] Stress ECG Conclusion 1. Resting EKG was normal 2. Patient underwent testing using pharmacologic stress with regadenoson 3. Peak heart rate achieved was 72% predicted for age 4. The electrocardiographic portion of the test was nondiagnostic 5. See MPI report Stress Test Summary STAGE HR BP SpO2 Symptoms NOTES Supine 50 158/78 Standing 59 148/72 1 min post Lexiscan injection 94 148/60 3 min post Lexiscan injection 86 152/62 6 min post Lexiscan injection 67 150/76 MPI Conclusion Myocardial perfusion appears grossly normal, no ischemia or infarction EF 50%, wall motion is normal Radiologist Interpretation Radiologist Interpretation by: Jon Moncada MD Interpretation Date/Time: 08/26/2023 18:46:37
[2023-08-26] MEDS: Regadenoson 0.4 MG/5 ML SYR IVP (14:53)
== END ==
PROVIDERS: PCP Nurse Practitioner Family; Visit Provider Nurse Practitioner Family
DX: R06.09 Other forms of dyspnea (principal); I25.110 Atherosclerotic heart disease of native coronary artery with unstable angina pectoris
CPT/HCPCS: 78452; 93016; 93018; 71046; 93017; J2785

== ENCOUNTER → 2023-09-07 01:47 | Outpatient (CLI) | payer MEDICARE, SELFPAY ==
--- NOTE | 2023-09-07 06:45 | DI.US_ITS ---
APPROVED REPORT EXAM: Comprehensive 2D, Doppler, and color-flow Echocardiogram Patient Location: Out-Patient Patent Engineer: Meagan Wells RDCS (AE) Indications: ZUNIGA, CAD, Mitral Regurgitation Other Information Study Quality: Adequate Conclusion Left ventricle is normal in wall thickness, cahmber size and systolic function. EF is 58%. There are no segmental wall motion abnormalities Normal right ventricualr size and function Left atrium is mildly dilated. Normal right atrial size Trileaflet mildly sclerotic aortic valve without stenosis or regurgitation Mild mitral regurgitation Wall motion Left Ventricle The left ventricle is normal size. The left ventricular systolic function is normal. The left ventric ular ejection fraction is within the normal range. There is normal left ventricular wall thickness. T here is normal LV segmental wall motion. There is no ventricular septal defect visualized. LVEF is 58 %. Right Ventricle The right ventricle is normal size. The right ventricular systolic function is normal. Atria The left atrium is mildly dilated The right atrium size is normal. Aortic Valve The aortic valve is mildly sclerotic Aortic valve is trileaflet. No hemodynamically significant valvu lar aortic stenosis. No aortic regurgitation is present. Mitral Valve The mitral valve is normal in structure. No evidence of mitral valve stenosis. Mild mitral regurgita tion. Tricuspid Valve The tricuspid valve is normal in structure. There is no tricuspid valve stenosis. Trace tricuspid reg urgitation. Unable to assess PA pressure. Pulmonic Valve The pulmonary valve is normal in structure. There is no pulmonic valvular stenosis. Trace pulmonic re gurgitation. Great Vessels The aortic root is normal in size. The ascending aorta is normal in size. Aortic arch is normal in ca liber. IVC is normal in size and collapses >50% with inspiration. Pericardium There is no pericardial effusion. 2D Dimensions IVSD d PLAX 0.79 cm M: 0.6-1.2 Ao Root d 2.74 cm M: 3.1 - 3.7 LVPW d PLAX 0.84 cm M: 0.6 - 1.2 Ao Asc Diam d 3.41 cm M: 2.6 - 3.4 LVID d PLAX 5.69 cm M: 4.2 - 5.8 LVDs 3.91 cm M: 2.5 - 4.0 LV EF Teichholz 58.3 % FS 31.22 % LV EDV (Teich) 159.1 mL LV ESV (Teich) 66.3 mL M-Mode TAPSE 1.77 cm (M/F) >1.7 Auto EF LV EDV A4C 104.0 mL LV EDV A2C 168.2 mL LV EDV BP 132.2 mL LV ESV A4C 42.9 mL LV ESV A2C 72.9 mL LV ESV BP 55.9 mL LVEF(%) A4C 58.7 % LVEF(%) A2C 56.7 % LVEF(%) BP 57.7 % LV SV A4C 61.1 ml LV SV A2C 95.3 ml LV SV BP 76.3 ml LV CO A4C 3.1 L/min LV CO A2C 4.7 L/min LV CO BP 3.9 L/min HR A4C 50.20 BPM HR A2C 49.78 BPM LV EDV Index (BP) LA Volume LA Length A4C 5.7 cm LA Length A2C 5.6 cm LA Area A4C s 15.48 cm2 LA Area A2C s 21.38 cm2 LA Vol A4C A-L 35.75 mL LA Vol A2C A-L 69.17 mL LA Vol Biplane A-L 50.1 mL LA Vol/BSA A4C A-L LA Vol/BSA A2C A-L LA Vol/BSA BP A-L 24.7 mL/m2 LA Vol A4C MOD 33.1 mL LA Vol A2C MOD 65.5 mL LA Vol BP MOD 46.9 mL RA Volume RA Area A4C 13.6 cm2 RA ESV A4C (A-L) 37.4mL RA Vol/BSA A4C A-L RA Length A4C 4.2 cm RA ESV A4C (MOD) 35.5mL LV Diastology MV E' medial 0.038 (>0.07 m/s) MV E Vmax 1.23 (0.4-1.3 m/s) MV E/E' MED 32.39 (<14) MV A Vmax 0.90 (0.4-1.3 m/s) MV E' lateral 0.074 (>0.1 m/s) E/A Ratio 1.4 MV E/E' LAT 16.65 (<14) MV E' Average 0.056 m/s MV E/E'(average) 22.00 Aortic Valve AoV Vmax 2.10 m/s LVOT Vmax 1.21 m/s AoV Peak Grad 17.6 mmHg LVOT Peak Grad 5.8 mmHg AoV Area (Vmax) 1.69 cm2 LVOT VTI 0.304 m AoV VTI 0.542 m LVOT Mean Grad 3.3 mmHg AoV Mean Kennedy. 1.45 m/s LVOT SV 88.87 mL AoV Mean Grad 9.8 mmHg LVOT Diam s 1.90 cm AoV Area (VTI) 1.64 cm2 Velocity Ratio 0.58 Mitral Valve MV DT 162 (160-240 msec) MV Vmax TIPS 1.07 m/s MV Mean Grad 2.0 (<2mmHg) MV VTI 0.428 m Pulmonary Valve PV Vmax 1.20 (0.5-1.5 m/s) RVOT Vmax 0.67 m/s PV Peak Grad 5.8 mmHg RVOT Peak Gr. 1.8 mmHg PV Mean Kennedy 0.83 m/s RVOT VTI 0.171 m PV Mean Grad 3.1 mmHg RVOT Mean Gr. 1.2 mmHg Tricuspid Valve RA Pressure 3.00 mmHg TV S' 0.08 m/s
== END ==
PROVIDERS: PCP Nurse Practitioner Family; Visit Provider Nurse Practitioner Family
DX: R06.09 Other forms of dyspnea (principal); I25.110 Atherosclerotic heart disease of native coronary artery with unstable angina pectoris
CPT/HCPCS: 93306

== ENCOUNTER 2023-09-09 15:08 | Outpatient (REF) | payer MEDICARE, SELFPAY ==
[2023-09-09 13:30] LABS: Bilirubin Negative (Negative); Blood Negative (Negative); Clarity Clear (Clear); Glucose Negative (Negative); Ketones Negative (Negative); Leukocyte Esterase Negative (Negative); Nitrite Negative (Negative); Urobilinogen 0.2 mg/dL (Up to 0.2)
== END 2023-09-09 15:09 | disposition home or self-care (01) ==
LOC: LBN 15:08
PROVIDERS: PCP Nurse Practitioner Family; Visit Provider Nurse Practitioner Family
DX: N40.1 Benign prostatic hyperplasia with lower urinary tract symptoms (principal); N13.8 Other obstructive and reflux uropathy
CPT/HCPCS: 81003

== ENCOUNTER 2023-12-29 01:09 | Outpatient (CLI) | payer MEDICARE, SELFPAY ==
--- NOTE | 2023-12-29 07:15 | DI.RAD_ITS ---
Exam(s) RF BARIUM SWALLOW EXAM: RF BARIUM SWALLOW CLINICAL HISTORY: food getting stuck in throat, not able to eat,dysphagia,r13.10 TECHNIQUE: 2D and realtime digital imaging was performed. CONTRAST MATERIAL: Oral barium contrast was administered. COMPARISON: CR,RF BARIUM SWALLOW W PA LAT CXR from 03/05/2016 FINDINGS: CHEST X-RAY: The heart and pulmonary vasculature are within normal limits. The patient has had a CAB G. The lungs are clear. No pleural effusion or pneumothorax is present. The bones are within normal limits for the patient's age. ESOPHAGRAM: There is a 2 cm filling defect in the distal esophagus. The mass appears immobile. With regards to the motility, there is a normal primary stripping wave. No tertiary contractions were not ed. There is a hiatal hernia present. IMPRESSION: 2 cm mass in the distal esophagus within the hiatal hernia. Primary concern is for neoplasm. Foreig n body/retained food should also be considered. An upper endoscopy is recommended for further evalua tion. Unexpected findings RADIATION DOSE DELIVERED: ramakrishna Carvalho=130 mGy
[2023-12-29] MEDS: Barium Sulfate 60% W/V 355 ML BTL PO (11:06)
[2023-12-29] MEDS: Barium Sulfate 98% W/W 140 ML BTL PO (11:06)
[2023-12-29] MEDS: Barium Sulfate 700 MG TAB PO (11:07)
== END 2023-12-29 01:29 ==
LOC: DI 01:09
PROVIDERS: PCP Nurse Practitioner Family; Visit Provider Nurse Practitioner Family
DX: R13.19 Other dysphagia (principal)
CPT/HCPCS: 74221; J3490

== ENCOUNTER → 2023-12-30 08:50 | Outpatient (BNVA) | payer MEDICARE, SELFPAY | PROVIDERS: PCP Nurse Practitioner Family; Referring Provider Nurse Practitioner Family; Visit Provider Surgery | DX: R13.10 Dysphagia, unspecified (principal); K22.89 Other specified disease of esophagus; K21.9 Gastro-esophageal reflux disease without esophagitis; T18.108A Unspecified foreign body in esophagus causing other injury, initial encounter | CPT/HCPCS: 99204 ==

== ENCOUNTER 2023-12-30 10:07 | Outpatient (CLI) | payer MEDICARE, SELFPAY ==
[2023-12-30 10:50] LABS: Abs Immature Grans 0.03 10^3/uL (0.0-0.06); Absolute Basophil Count 0.06 10^3/uL (0.0-0.2); Absolute Eosinophil Count 0.57 10^3/uL (0.0-0.7); Absolute Lymphocyte Count 2.35 10^3/uL (1.2-3.4); Absolute Neutrophil Count 4.27 10^3/uL (1.2-6.7); Basophils % 0.7 %; Eosinophils % 7.1 %; HCT 47.4 % (40.0-50.0); HGB 15.2 g/dL (13.5-17.5); Immature Grans % 0.4 %; Lymphocytes % 29.1 %; MCHC 32.1 % (32.0-36.0); MCV 84 fL (80-95); Monocytes % 9.9 %; Neutrophils % 52.8 %; Platelet Count 353 10^3/uL (130-400); RBC 5.62 10^6/uL (4.36-5.78); RDW 12.9 % (11.8-14.1); RDW-SD 39.8 fL; WBC 8.08 10^3/uL (4.4-10.8)
[2023-12-30 11:15] LABS: ALT 24 U/L (16-63); AST 22 U/L (15-37); Albumin 3.4 g/dL (3.4-5.0); Alkaline Phosphatase 96 U/L (46-116); BUN 16 mg/dL (7-18); Bilirubin, Total 0.37 mg/dL (0.2-1.0); CREATININE 1.1 mg/dL (0.70-1.30); Calcium 9.2 mg/dL (8.5-10.1); Chloride 105 mmol/L (98-107); Estimated GFR 71.32 (mL/min/1.73m2); GGT 40 U/L (15-85); Glucose 121 mg/dL (74-106); Magnesium 2.1 mg/dL (1.8-2.4); NT-proBNP 272 pg/mL (<300); Potassium 4.3 mmol/L (3.5-5.1); Sodium 141 mmol/L (136-145); Total Protein 7.9 g/dL (6.4-8.2)
[2023-12-30 17:34] LABS: Ferritin 273 ng/mL (26-388)
== END 2023-12-30 10:08 | disposition home or self-care (01) ==
LOC: LBO 10:08
PROVIDERS: PCP Nurse Practitioner Family; Visit Provider Surgery
DX: I10 Essential (primary) hypertension (principal); I25.110 Atherosclerotic heart disease of native coronary artery with unstable angina pectoris; R06.09 Other forms of dyspnea; E78.5 Hyperlipidemia, unspecified; E11.59 Type 2 diabetes mellitus with other circulatory complications; E66.9 Obesity, unspecified; H91.90 Unspecified hearing loss, unspecified ear; R13.10 Dysphagia, unspecified; K22.89 Other specified disease of esophagus; N40.1 Benign prostatic hyperplasia with lower urinary tract symptoms; N13.8 Other obstructive and reflux uropathy; I21.4 Non-ST elevation (NSTEMI) myocardial infarction; Z95.1 Presence of aortocoronary bypass graft; Z95.5 Presence of coronary angioplasty implant and graft
CPT/HCPCS: 36415; 80053; 99204; 82728; 82977; 83735; 83880; 85025

== ENCOUNTER 2024-02-09 07:38 | Day surgery (SDC) | payer MEDICARE, SELFPAY ==
[2024-02-09 08:01] VITALS: BP 164/80; PULSE 61; RESP 16; TEMP 36.3; O2SAT 98
[2024-02-09] MEDS: Lactated Ringers 1,000 ML 80 ML IV (08:32)
--- NOTE | 2024-02-09 08:35 | ANES.PREOP_ITS ---
General Info Date of Service Date Performed: 02/09/24 Height: 5 ft 5 in Weight: 94 kg Body Mass Index (BMI): 34.4 Surgical Procedure: Operation Date: 02/09/24 09:05 Proposed Procedure Side Surgeon p Gastroscopy Subhash Mendez MD Meds Allergies and Home Medications Allergies Allergy/AdvReac Type Severity Reaction Status Date / Time morphine AdvReac Nausea Verified 02/09/24 08:16 Home Medication ?Medication ?Instructions ?Recorded blood sugar diagnostic (OneTouch #200 ea 08/14/21 Ultra Test strips) blood-glucose meter (OneTouch #1 ea 08/14/21 Ultra2 Meter kit) lancets (OneTouch UltraSoft #200 ea 08/14/21 Lancets) nitroglycerin 0.4 mg sublingual 0.4 mg sublingual Q5M PRN chest 05/28/23 tablet pain #60 tabs amlodipine 5 mg tablet 5 mg PO BID #180 tabs 08/20/23 atorvastatin 80 mg tablet 80 mg PO DAILY #90 tabs 08/20/23 clopidogrel 75 mg tablet (Plavix) 75 mg PO DAILY #90 tabs 08/20/23 ezetimibe 10 mg tablet (Zetia) 10 mg PO DAILY #90 tabs 08/20/23 metoprolol succinate 100 mg 100 mg PO DAILY #90 tabs 08/20/23 tablet,extended release 24 hr tamsulosin 0.4 mg capsule 0.8 mg (2 x 0.4 mg) PO DAILY #180 08/20/23 tabs metformin 500 mg tablet,extended 500 mg PO BID #180 tabs 09/09/23 release 24 hr apple cider vinegar 600 mg capsule 600 mg PO TID 12/30/23 pantoprazole 40 mg tablet,delayed 40 mg PO DAILY #90 tabs 12/30/23 release (Protonix) Current Visit Medications: Current Medications Generic Name Dose Route Start Last Admin Trade Name Freq PRN Reason Stop Dose Admin Ringer's Solution 1,000 mls @ 80 mls/hr 02/09/24 06:00 02/09/24 08:32 IV 03/09/24 23:59 80 mls/hr INFUSION THOMAS Administration IV Miscellaneous Supplies 1 each 02/09/24 06:00 Iv Access IV 03/09/24 23:59 DIRECTED THOMAS Sodium Chloride 0 ml 02/09/24 06:00 Normal Saline Flush 10 Ml Syr IV 03/09/24 23:59 PRN PRN Sodium Chloride 0 ml 02/09/24 06:00 Normal Saline 10 Ml Vial IJ 03/09/24 23:59 DIRECTED PRN Sterile Water 0 ml 02/09/24 06:00 Water,Injection,Sterile 10 Ml Vial IJ 03/09/24 23:59 DIRECTED PRN PFSH Active Problems Active Problems: Problem Status Onset Code Chronic GERD Acute K21.9 Esophageal foreign body Acute T18.108A Esophageal mass Acute K22.89 Dysphagia Acute R13.10 ZUNIGA (dyspnea on exertion) Acute R06.09 Type 2 diabetes mellitus Chronic E11.9 Gout Chronic M10.9 Hyperlipidemia Chronic E78.5 CAD (coronary artery disease) Chronic I25.10 Obesity Chronic E66.9 Hearing loss Chronic H91.90 Essential hypertension Chronic I10 BPH w urinary obs/LUTS Chronic N40.1, N13.8 Medical History Medical History Acute non-ST elevation myocardial infarction (NSTEMI) (~09/2020) 2020 Surgical History Surgical History S/P coronary artery stent placement (09/17/20) SARA to OM2 x 2 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) KNIGHT to LAD, saphenous vein graft to OM and to PDA S/P appendectomy Tobacco Smoking/Tobacco Use Status: Never Passive smoking exposure: Yes Second hand exposure: Yes Alcohol Alcohol Intake: never Substance Use Substance use: Never Substance use type: does not use Vital Signs and Lab Results Vital Signs Most Recent Vital Signs in EMR: Most Recent Vital Signs Temp Pulse Resp BP Pulse Ox 36.3 C L 61 16 164/80 H 98 02/09/24 08:01 02/09/24 08:01 02/09/24 08:01 02/09/24 08:01 02/09/24 08:01 Point of Care Results Point of Care Results: Finger Stick Blood Glucose 122 02/09/24 08:12 Lab Results Blood Type / Crossmatch: No Data to Display Complete Blood Count: No Data to Display Complete Metabolic Panel: No Data to Display Liver Function Panel: No Data to Display Coagulation Panel: No Data to Display Cardiac Panel: No Data to Display Arterial Blood Gas: No Data to Display Venous Blood Gas: No Data to Display Pancreas Panel: No Data to Display Thyroid Panel: No Data to Display Infectious Disease: No Data to Display Blood Cultures: No Data to Display Toxicology Panel: 2 No Data to Display Imaging and Studies Imaging and Studies Study information below may be from another EMR and interpreted by another provider. Please see original notes in EMR for more complete details. EKG Summary: 09/15/20: Exam: Resting ECG Patient Location: I HR:53 bpm ECG Measurements Heart Rate 53 AXIS WV 157 P 47 QRSd 100 QRS 75 QT 448 T-13 QTc 421 Conclusion Sinus bradycardia...rate< 60 Echocardiogram Summary: 09/07/23: Conclusion Left ventricle is normal in wall thickness, cahmber size and systolic function. EF is 58%. There are no segmental wall motion abnormalities Normal right ventricualr size and function Left atrium is mildly dilated. Normal right atrial size Trileaflet mildly sclerotic aortic valve without stenosis or regurgitation Mild mitral regurgitation Anesthesia Assessment and Plan Anesthesia History Personal History: No History of Anesthesia Complications Family History: No Family History of Anesthesia Complications Exercise Tolerance Exercise Tolerance: Metabolic Equivalents>4 Pertinent Negatives Pertinent Negatives: No Major Cardiovascular Symptoms or Complaints and No Major Pulmonary Symptoms or Complaints Cardiac & Pulmonary Exam Cardiac Exam: Heart Murmur Present Pulmonary Exam: Clear Bilateral Breath Sounds Implantable Cardiac Device Does patient have a Pacemaker or an ICD?: No Airway Exam Known Difficult Airway: No Mallampati Class: 2 Mouth Opening: Normal (> 3cm) Thyromental Distance: Greater than 3 cm Neck Range of Motion: Full ROM Neck Circumference: Thick Teeth Condition: Normal Dentition ASA Classification ASA Score: ASA 3 Emergency Case?: No NPO Status NPO Status: NPO Clears >2 hours, Solids >8 hours Anesthesia Plan Resuscitation Status: Full Code Anesthesia Technique: General Anesthesia Airway Planned: Natural Airway Monitors Used: Standard Monitors Preoperative Comments:: Recent finding and indication for EGD: IMPRESSION: 2 cm mass in the distal esophagus within the hiatal hernia. Primary concern is for neoplasm. Foreign body/retained food should also be considered. An upper endoscopy is recommended for further evaluation.
[2024-02-09 08:46] VITALS: BMI 34.4
--- NOTE | 2024-02-09 09:12 | W.SURGCON ---
Date of service: 02/09/24 Time of Service: 09:12 Assessment and Plan Assessment and plan (1) Esophageal mass: Status: Acute Assessment and plan: 73-year-old man due for an EGD because of the possibility of a esophagus mass identified on barium swallow study. He has worsening dysphagia to solids. Possible this is a malignancy. Overall plan: EGD History of Present Illness Narrative: 73-year-old man has had dysphagia that is worsening to solid food over the last year or so. He had an upper GI/barium swallow that showed a possible esophagus mass. This is the reason for doing EGD today. ON LICENSE OF [facility] All Active Problems Chronic GERD (Acute) Esophageal foreign body (Acute) Esophageal mass (Acute) Dysphagia (Acute) ZUNIGA (dyspnea on exertion) (Acute) Type 2 diabetes mellitus (Chronic) Gout (Chronic) Hyperlipidemia (Chronic) CAD (coronary artery disease) (Chronic) CABG X 3 2004, NSTEMI s/p SARA to OM2 x 2 2020. Followed by [facility] [place] [facility] Obesity (Chronic) Hearing loss (Chronic) Essential hypertension (Chronic) BPH w urinary obs/LUTS (Chronic) Medical History Acute non-ST elevation myocardial infarction (NSTEMI) (~09/2020) 2020 Surgical History S/P coronary artery stent placement (09/17/20) SARA to OM2 x 2 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) KNIGHT to LAD, saphenous vein graft to OM and to PDA S/P appendectomy Family History Mother Stroke Father Diabetes Essential hypertension Heart disease Hyperlipidemia Stroke Sister No problems noted. Brother Diabetes Essential hypertension Hyperlipidemia Brother No problems noted. Son No problems noted. Daughter No problems noted. Daughter No problems noted. Maternal Grandfather , 65 Lung cancer Maternal Grandmother , 72 Diabetes Paternal Grandfather , 76 Stroke Paternal Grandmother , 95 No problems noted. Social History Smoking/Tobacco Use Status: Never Second Hand Exposure: Yes Smoking risk assessment performed?: Yes Alcohol Intake: never Drug use: Never Substance use type: does not use Caregiver/Support person: No Household members: spouse Housing: house Communication Needs: None Do you need help understanding health information?: Often Pets and animals: Yes Pets and animals: cat(s) and dog(s) Sexually active: Yes Do you think of yourself as: straight/heterosexual Current gender identity: male What is your relationship status?: How often do you talk on the phone with friends or family?: once per week How often do you get together with friends or relatives?: never How often do you attend oriental orthodox or bahai services?: decline to answer Do you belong to any clubs or organized social groups?: no Panel score (0-1 are the most socially isolated patients): 1 What type of physical activity do you participate in: none Frequency: does not exercise Freya/Mosque: No preference Special freya needs: No Seatbelt use: always Helmet use: No Drive intox or ride w/intox m48/m60 tank driver: No Do you feel safe at home: Yes Do you feel safe in your relationship?: Yes Additional Social history: [facility] Exam Narrative Exam Narrative: Gen: Non-toxic, comfortable and interactive Neuro: Alert and oriented x3 Psych: Good mood and affect. Good insight and understanding into condition. Chest: Non-labored breathing, no wheezing, no visible shortness of breath. Heart: Regular Results Last Vital Signs Temp 97.3 F L 02/09/24 08:01 Pulse 61 02/09/24 08:01 Resp 16 02/09/24 08:01 BP 164/80 H 02/09/24 08:01 Pulse Ox 98 02/09/24 08:01
--- NOTE | 2024-02-09 09:30 | STOM_PTH ---
PATIENT: Roberto Prater LOC: [facility] U#:[id number] AGE/SX: 73/M ROOM: RE02/09/[address]: Subhash Mendez : 1950 BED: DIS: 02/09/2024 SPEC #: [id number] RECD: 02/09/24 12:42 STATUS: [facility] #: [id number] SHAKIRA: 02/09/24 09:[address]: Subhash Mendez DEPT: Surgical Specimen RECD BY: Pinky Kauffman ENTERED: 02/09/24 12:43 SP TYPE: STOMACH OTHR DR: Serene Bales, SABRINA Tissues: 1 - STOMACH BIOPSY 2 - STOMACH BIOPSY 3 - ESOPHAGUS BIOPSY Procedures: GROSS AND MICRO LEVEL 4 SPECIAL STAIN 1 Comments: [id number]
--- NOTE | 2024-02-09 09:44 | W.PM.ENDDOP ---
Date of service: 02/09/24 Time of Service: 09:44 Endoscopy Report PROCEDURE DESCRIPTION: PROCEDURES PERFORMED: 1. EGD with biopsies PREOPERATIVE DIAGNOSIS: Esophagus mass, dysphagia POSTOPERATIVE DIAGNOSIS: Mild gastritis/gastropathy, small type I sliding hiatal hernia, LA grade C esophagitis SURGEON: Radha Mendez MD INDICATION FOR PROCEDURE: 73-year-old man with dysphagia to solids that has been progressively worsening for about a year. Esophagram showed possibility of esophageal mass. FINDINGS: D2/D3 = normal D1/bulb = normal - no ulcers or inflammation Pylorus = normal Antrum = mildly inflamed appearance, no ulcers, cold forceps biopsies were taken to rule out H. pylori routinely Body = mildly inflamed appearance, biopsies taken with cold forceps technique routinely Fundus = normal, no polyps Cardia = normal Hiatus = small (sub-centimeter) type I sliding hiatal hernia, Hill grade 1 defect Distal esophagus = there is a chronically?inflamed appearance circumferentially at the GE junction. I do not think this represents a tumor but it is possible. It does not look like Herrera's. I took multiple biopsies with cold forceps technique. Overall I think this is grade C?D esophagitis, but it is possible this was a Siewart class/type ii lesion. Mid esophagus = normal Proximal esophagus/hypopharynx/vocal cords = normal SURVEILLANCE-INTERVAL/FOLLOW-UP: Pending pathology results Specimens: Yes EBL: Minimal COMPLICATIONS: None Procedure in detail: The patient gave written consent and was in agreement with the indications, the potential risks as well as the benefits of the procedure. The patient was taken to the endoscopy suite and laid on their left side. Anesthesia was given which was tolerated well. We performed a timeout and we are in agreement I started the procedure. A well-lubricated endoscope was gently and carefully advanced down the esophagus, into the stomach the scope was and through the pylorus into the duodenum. The scope was then slowly withdrawn with the above-noted findings/interventions. The patient tolerated the procedure well and was taken to recovery.
[2024-02-09 09:46] VITALS: BP 118/77; PULSE 62; RESP 16; TEMP 36.3; O2SAT 95
--- NOTE | 2024-02-09 09:52 | W.ANESPOSTOP ---
Postoperative Evaluation Date, Time and Location Date Performed: 02/09/24 Time Performed: 09:52 Patient Location: Day Surgery Unit Vital Signs Most Recent Imported Vital Signs: Most Recent Vital Signs Temp Pulse Resp BP Pulse Ox 36.3 C L 62 16 118/77 95 02/09/24 09:46 02/09/24 09:46 02/09/24 09:46 02/09/24 09:46 02/09/24 09:46 Pain Score Most Recent Pain Score: Most Recent Pain Score Pain Level 0 02/09/24 09:46 Assessment Mental Status: Awake (Alert & Oriented to Patient Baseline) Airway and Respiratory Function: Patent airway with normal (patient baseline) respiratory exam Cardiovascular Function: Hemodynamically Stable Hydration Status: Adequately Hydrated Nausea & Vomiting: No Nausea or Vomiting Pain: Pt. Denies Any Pain Peripheral Nerve Block: Patient did not receive a nerve block
--- NOTE | 2024-02-09 09:53 | W.PM.DSUDISC ---
Date of service: 02/09/24 Time of Service: 09:54 Discharge Plan Disposition Patient Disposition: Home Condition: Good Discharge Details Attending Provider: Subhash Mendez Primary Care Provider: Serene Bales Meds and New Rx's Prescriptions: No Action (DME) blood-glucose meter [OneTouch Ultra2 Meter] Kit See Rx Instructions .MEDSUPPLY Qty: 1 2RF Rx Instructions: Check blood sugar twice a day (DME) lancets [OneTouch UltraSoft Lancets] Misc See Rx Instructions .MEDSUPPLY Qty: 200 4RF Rx Instructions: Check blood sugar twice a day (DME) OneTouch Ultra Test Strip See Rx Instructions .MEDSUPPLY Qty: 200 4RF Rx Instructions: Check blood sugar twice a day amlodipine 5 mg tablet 5 mg PO BID Qty: 180 3RF atorvastatin 80 mg tablet 80 mg PO DAILY Qty: 90 3RF ezetimibe [Zetia] 10 mg tablet 10 mg PO DAILY Qty: 90 3RF metoprolol succinate 100 mg tablet extended release 24 hr 100 mg PO DAILY Qty: 90 3RF tamsulosin 0.4 mg capsule 0.8 mg PO DAILY Qty: 180 3RF Rx Instructions: Take 2 capsules daily clopidogrel [Plavix] 75 mg tablet 75 mg PO DAILY Qty: 90 3RF apple cider vinegar 600 mg capsule 600 mg PO TID pantoprazole [Protonix] 40 mg tablet,delayed release (DR/EC) 40 mg PO DAILY Qty: 90 4RF nitroglycerin 0.4 mg tablet, sublingual 0.4 mg sublingual Q5M PRN (Reason: chest pain) Qty: 60 0RF Rx Instructions: Take 1 tab at onset of symptoms, repeat every 5 minutes x 3 doses if chest pain persists metformin 500 mg tablet extended release 24 hr 500 mg PO BID Qty: 180 0RF Discharge Instructions Additional Instructions: FINDINGS: Overall there is a lot of inflammation at the bottom of your esophagus. This is not really a surprise. Multiple biopsies were taken. It is unclear why that area is still inflamed and irritated. I recommend follow-up in about 4 weeks or so to go over biopsy results and discuss next steps. Stand Alone Forms: Anesthesia Discharge Inst., DSU Post EGD Instructions Activity:: Activity as Tolerated Diet:: As Tolerated DS: Diagnosis Discharge Diagnosis (1) Esophageal mass: Status: Acute
[2024-02-09 10:22] VITALS: BP 152/74; PULSE 60; RESP 16; TEMP 36.3; O2SAT 98
== END 2024-02-09 10:38 | disposition home or self-care (01) ==
PROVIDERS: PCP Nurse Practitioner Family; Visit Provider Student in an Organized Health Care Education/Training Program
PROC: 0DJ68ZZ Inspection of Stomach, Via Natural or Artificial Opening Endoscopic (ICD-10-PCS; CPT 43235; principal; 2024-02-09 09:00)
DX: K22.89 Other specified disease of esophagus (principal); R13.10 Dysphagia, unspecified; K29.70 Gastritis, unspecified, without bleeding; K20.90 Esophagitis, unspecified without bleeding; K44.9 Diaphragmatic hernia without obstruction or gangrene; K31.89 Other diseases of stomach and duodenum
CPT/HCPCS: 43239; 00123; 88305; 88312; J2704

== ENCOUNTER → 2024-03-08 11:48 | Outpatient (BNVA) | payer MEDICARE, SELFPAY | PROVIDERS: PCP Nurse Practitioner Family; Referring Provider Nurse Practitioner Family; Visit Provider Student in an Organized Health Care Education/Training Program | DX: R13.10 Dysphagia, unspecified (principal) | CPT/HCPCS: 99214 ==

== ENCOUNTER → 2024-03-16 10:40 | Outpatient (BNVA) | payer MEDICARE, SELFPAY | PROVIDERS: PCP Nurse Practitioner Family; Referring Provider Nurse Practitioner Family; Visit Provider Nurse Practitioner Gerontology | DX: N40.1 Benign prostatic hyperplasia with lower urinary tract symptoms (principal); N13.8 Other obstructive and reflux uropathy | CPT/HCPCS: 51798; 81003; 99215 ==

== ENCOUNTER 2024-04-04 09:23 | Day surgery (SDC) | payer MEDICARE, SELFPAY ==
--- NOTE | 2024-04-03 18:00 | W.ANESPRE ---
General Info Height: 5 ft 5 in Weight: 91.229 kg Body Mass Index (BMI): 33.5 Surgical Procedure: Operation Date: 04/04/24 10:05 Proposed Procedure Side Surgeon p Colonoscopy Subhash Mendez MD Meds Allergies and Home Medications Allergies Allergy/AdvReac Type Severity Reaction Status Date / Time morphine AdvReac Nausea Verified 04/04/24 09:43 Home Medication ?Medication ?Instructions ?Recorded nitroglycerin 0.4 mg sublingual 0.4 mg sublingual Q5M PRN chest 05/28/23 tablet pain #60 tabs amlodipine 5 mg tablet 5 mg PO BID #180 tabs 08/20/23 atorvastatin 80 mg tablet 80 mg PO DAILY #90 tabs 08/20/23 clopidogrel 75 mg tablet (Plavix) 75 mg PO DAILY #90 tabs 08/20/23 ezetimibe 10 mg tablet (Zetia) 10 mg PO DAILY #90 tabs 08/20/23 metoprolol succinate 100 mg 100 mg PO DAILY #90 tabs 08/20/23 tablet,extended release 24 hr tamsulosin 0.4 mg capsule 0.8 mg (2 x 0.4 mg) PO DAILY #180 08/20/23 tabs apple cider vinegar 600 mg capsule 600 mg PO TID 12/30/23 pantoprazole 40 mg tablet,delayed 40 mg PO DAILY #90 tabs 12/30/23 release (Protonix) metformin 500 mg tablet,extended 500 mg PO BID #60 tabs 02/17/24 release 24 hr bisacodyl 5 mg tablet,delayed 5 mg PO ONCE colonscopy bowel prep 03/08/24 release (Dulcolax (bisacodyl)) #4 tabs polyethylene glycol 3350 17 238 g PO ONCE colonoscopy prep 03/08/24 gram/dose oral powder #238 grams blood sugar diagnostic (OneTouch #200 ea 03/20/24 Ultra Test strips) blood-glucose meter #1 ea 03/20/24 lancets #200 ea 03/20/24 Current Visit Medications: Current Medications Generic Name Dose Route Start Last Admin Trade Name Freq PRN Reason Stop Dose Admin Ringer's Solution 1,000 mls @ 80 mls/hr 04/04/24 06:00 IV 04/04/24 23:59 INFUSION THOMAS IV Miscellaneous Supplies 1 each 04/04/24 06:00 Iv Access IV 04/04/24 23:59 DIRECTED THOMAS Sodium Chloride 0 ml 04/04/24 06:00 Normal Saline Flush 10 Ml Syr IV 04/04/24 23:59 PRN PRN Sodium Chloride 0 ml 04/04/24 06:00 Normal Saline 10 Ml Vial IJ 04/04/24 23:59 DIRECTED PRN Sterile Water 0 ml 04/04/24 06:00 Water,Injection,Sterile 10 Ml Vial IJ 04/04/24 23:59 DIRECTED PRN PFSH Active Problems Active Problems: Problem Status Onset Code Chronic GERD Acute K21.9 Esophageal foreign body Acute T18.108A Esophageal mass Acute K22.89 Dysphagia Acute R13.10 ZUNIGA (dyspnea on exertion) Acute R06.09 Type 2 diabetes mellitus Chronic E11.9 Gout Chronic M10.9 Hyperlipidemia Chronic E78.5 CAD (coronary artery disease) Chronic I25.10 Obesity Chronic E66.9 Hearing loss Chronic H91.90 Essential hypertension Chronic I10 BPH w urinary obs/LUTS Chronic N40.1, N13.8 Medical History Medical History Acute non-ST elevation myocardial infarction (NSTEMI) (~09/2020) 2020 Surgical History Surgical History History of esophagogastroduodenoscopy (EGD) (~02/09/24) S/P coronary artery stent placement (09/17/20) SARA to OM2 x 2 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) KNIGHT to LAD, saphenous vein graft to OM and to PDA S/P appendectomy Tobacco Smoking/Tobacco Use Status: Never Passive smoking exposure: Yes Second hand exposure: Yes Alcohol Alcohol Intake: never Substance Use Substance use: Never Substance use type: does not use Vital Signs and Lab Results Vital Signs Most Recent Vital Signs in EMR: Temp Pulse Resp BP Pulse Ox 36.4 C L 66 18 143/84 H 97 04/04/24 09:46 04/04/24 09:46 04/04/24 09:46 04/04/24 09:46 04/04/24 09:46 Lab Results Blood Type / Crossmatch: No Data to Display Complete Blood Count: No Data to Display Complete Metabolic Panel: No Data to Display Liver Function Panel: No Data to Display Coagulation Panel: No Data to Display Cardiac Panel: No Data to Display Arterial Blood Gas: No Data to Display Venous Blood Gas: No Data to Display Pancreas Panel: No Data to Display Thyroid Panel: No Data to Display Infectious Disease: No Data to Display Blood Cultures: No Data to Display Toxicology Panel: No Data to Display Imaging and Studies Imaging and Studies Study information below may be from another EMR and interpreted by another provider. Please see original notes in EMR for more complete details. EKG Summary: 09/15/20: Exam: Resting ECG Patient Location: I HR:53 bpm ECG Measurements Heart Rate 53 AXIS ID 157 P 47 QRSd 100 QRS 75 QT 448 T-13 QTc 421 Conclusion Sinus bradycardia...rate< 60 Echocardiogram Summary: 09/07/23: Conclusion Left ventricle is normal in wall thickness, cahmber size and systolic function. EF is 58%. There are no segmental wall motion abnormalities Normal right ventricualr size and function Left atrium is mildly dilated. Normal right atrial size Trileaflet mildly sclerotic aortic valve without stenosis or regurgitation Mild mitral regurgitation Anesthesia Assessment and Plan Anesthesia History Personal History: No History of Anesthesia Complications Family History: No Family History of Anesthesia Complications Exercise Tolerance Exercise Tolerance: Metabolic Equivalents>4 Implantable Cardiac Device Does patient have a Pacemaker or an ICD?: No Airway Exam Known Difficult Airway: No Mallampati Class: 2 Mouth Opening: Normal (> 3cm) Thyromental Distance: Greater than 3 cm Neck Range of Motion: Full ROM Neck Circumference: Thick Teeth Condition: Normal Dentition Anesthesia Plan Resuscitation Status: Full Code Anesthesia Technique: General Anesthesia Airway Planned: Natural Airway Monitors Used: Standard Monitors Preoperative Comments:: 73 yo male for colo. Sig PMHx: HTN (amlodipine), CAD (cabg 2004, stent 2020. plavix, metoprolol, nitro), ZUNIGA, GERD (protonix), DM2 (zetia, metformin, . never smoker. EKG: sinus terrence. ECHO: LVEF 58%. mild MR. sclerotic AV. Stress: LVEF 50%, no ischemia or infarction. PFTs: normal. Previous Anes: - EGD, prop, natural airway, no issues.
[2024-04-04 09:46] VITALS: BP 143/84; PULSE 66; RESP 18; TEMP 36.4; O2SAT 97
[2024-04-04] MEDS: Normal Saline Flush 10 ML SYR IV (10:03)
--- NOTE | 2024-04-04 10:33 | W.ANESPRE ---
General Info Date of Service Date Performed: 04/04/24 Height: 5 ft 5 in Weight: 90.2 kg Body Mass Index (BMI): 33.0 Surgical Procedure: Operation Date: 04/04/24 10:05 Proposed Procedure Side Surgeon p Colonoscopy Subhash Mendez MD Meds Allergies and Home Medications Allergies Allergy/AdvReac Type Severity Reaction Status Date / Time morphine AdvReac Nausea Verified 04/04/24 09:43 Home Medication ?Medication ?Instructions ?Recorded nitroglycerin 0.4 mg sublingual 0.4 mg sublingual Q5M PRN chest 05/28/23 tablet pain #60 tabs amlodipine 5 mg tablet 5 mg PO BID #180 tabs 08/20/23 atorvastatin 80 mg tablet 80 mg PO DAILY #90 tabs 08/20/23 clopidogrel 75 mg tablet (Plavix) 75 mg PO DAILY #90 tabs 08/20/23 ezetimibe 10 mg tablet (Zetia) 10 mg PO DAILY #90 tabs 08/20/23 metoprolol succinate 100 mg 100 mg PO DAILY #90 tabs 08/20/23 tablet,extended release 24 hr tamsulosin 0.4 mg capsule 0.8 mg (2 x 0.4 mg) PO DAILY #180 08/20/23 tabs apple cider vinegar 600 mg capsule 600 mg PO TID 12/30/23 pantoprazole 40 mg tablet,delayed 40 mg PO DAILY #90 tabs 12/30/23 release (Protonix) metformin 500 mg tablet,extended 500 mg PO BID #60 tabs 02/17/24 release 24 hr bisacodyl 5 mg tablet,delayed 5 mg PO ONCE colonscopy bowel prep 03/08/24 release (Dulcolax (bisacodyl)) #4 tabs polyethylene glycol 3350 17 238 g PO ONCE colonoscopy prep 03/08/24 gram/dose oral powder #238 grams blood sugar diagnostic (OneTouch #200 ea 03/20/24 Ultra Test strips) blood-glucose meter #1 ea 03/20/24 lancets #200 ea 03/20/24 Current Visit Medications: Current Medications Generic Name Dose Route Start Last Admin Trade Name Freq PRN Reason Stop Dose Admin Ringer's Solution 1,000 mls @ 80 mls/hr 04/04/24 06:00 IV 04/04/24 23:59 INFUSION THOMAS IV Miscellaneous Supplies 1 each 04/04/24 06:00 Iv Access IV 04/04/24 23:59 DIRECTED THOMAS Sodium Chloride 0 ml 04/04/24 06:00 04/04/24 10:03 Normal Saline Flush 10 Ml Syr IV 04/04/24 23:59 10 ml PRN PRN Administration Sodium Chloride 0 ml 04/04/24 06:00 Normal Saline 10 Ml Vial IJ 04/04/24 23:59 DIRECTED PRN Sterile Water 0 ml 04/04/24 06:00 Water,Injection,Sterile 10 Ml Vial IJ 04/04/24 23:59 DIRECTED PRN PFSH Active Problems Active Problems: Problem Status Onset Code Chronic GERD Acute K21.9 Esophageal foreign body Acute T18.108A Esophageal mass Acute K22.89 Dysphagia Acute R13.10 ZUNIGA (dyspnea on exertion) Acute R06.09 Type 2 diabetes mellitus Chronic E11.9 Gout Chronic M10.9 Hyperlipidemia Chronic E78.5 CAD (coronary artery disease) Chronic I25.10 Obesity Chronic E66.9 Hearing loss Chronic H91.90 Essential hypertension Chronic I10 BPH w urinary obs/LUTS Chronic N40.1, N13.8 Medical History Medical History Acute non-ST elevation myocardial infarction (NSTEMI) (~09/2020) 2020 Surgical History Surgical History History of esophagogastroduodenoscopy (EGD) (~02/09/24) S/P coronary artery stent placement (09/17/20) SARA to OM2 x 2 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) KNIGHT to LAD, saphenous vein graft to OM and to PDA S/P appendectomy Tobacco Smoking/Tobacco Use Status: Never Passive smoking exposure: Yes Second hand exposure: Yes Alcohol Alcohol Intake: never Substance Use Substance use: Never Substance use type: does not use Vital Signs and Lab Results Vital Signs Most Recent Vital Signs in EMR: Most Recent Vital Signs Temp Pulse Resp BP Pulse Ox 36.4 C L 66 18 143/84 H 97 04/04/24 09:46 04/04/24 09:46 04/04/24 09:46 04/04/24 09:46 04/04/24 09:46 Lab Results Blood Type / Crossmatch: No Data to Display Complete Blood Count: No Data to Display Complete Metabolic Panel: No Data to Display Liver Function Panel: No Data to Display Coagulation Panel: No Data to Display Cardiac Panel: No Data to Display Arterial Blood Gas: No Data to Display Venous Blood Gas: No Data to Display Pancreas Panel: No Data to Display Thyroid Panel: No Data to Display Infectious Disease: No Data to Display Blood Cultures: No Data to Display Toxicology Panel: No Data to Display Imaging and Studies Imaging and Studies Study information below may be from another EMR and interpreted by another provider. Please see original notes in EMR for more complete details. EKG Summary: 09/15/20: Exam: Resting ECG Patient Location: I HR:53 bpm ECG Measurements Heart Rate 53 AXIS GA 157 P 47 QRSd 100 QRS 75 QT 448 T-13 QTc 421 Conclusion Sinus bradycardia...rate< 60 Echocardiogram Summary: 09/07/23: Conclusion Left ventricle is normal in wall thickness, cahmber size and systolic function. EF is 58%. There are no segmental wall motion abnormalities Normal right ventricualr size and function Left atrium is mildly dilated. Normal right atrial size [place] mildly sclerotic aortic valve without stenosis or regurgitation Mild mitral regurgitation Anesthesia Assessment and Plan Anesthesia History Personal History: No History of Anesthesia Complications Family History: No Family History of Anesthesia Complications Exercise Tolerance Exercise Tolerance: Metabolic Equivalents>4 Pertinent Negatives Pertinent Negatives: No Symptoms of GERD Cardiac & Pulmonary Exam Cardiac Exam: Normal S1/S2 Heart Sounds Pulmonary Exam: Clear Bilateral Breath Sounds Implantable Cardiac Device Does patient have a Pacemaker or an ICD?: No Airway Exam Known Difficult Airway: No Mallampati Class: 2 Mouth Opening: Normal (> 3cm) Thyromental Distance: Greater than 3 cm Neck Range of Motion: Full ROM Neck Circumference: Thick Teeth Condition: Normal Dentition ASA Classification ASA Score: ASA 3 Emergency Case?: No NPO Status NPO Status: NPO Clears >2 hours, Solids >8 hours Anesthesia Plan Resuscitation Status: Full Code Anesthesia Technique: General Anesthesia Airway Planned: Natural Airway Monitors Used: Standard Monitors
--- NOTE | 2024-04-04 10:33 | W.COLOREPORT ---
Date of service: 04/04/24 Time of Service: 10:33 Colonoscopy Report Procedure Description: PROCEDURES PERFORMED: 1. Colonoscopy with hot snare polypectomy x2 2. Cold forceps polypectomy x 5 PREOPERATIVE DIAGNOSIS: Surveillance colonoscopy POSTOPERATIVE DIAGNOSIS: Colon polyps, grade 1?2 internal hemorrhoids, AVMs SURGEON: Radha Mendez MD INDICATION for procedure: The patient is a 73-year-old man overdue for surveillance colonoscopy. He has no symptoms of concern. His last colonoscopy was 16 years ago. He has no family history of colon cancer. FINDINGS: In the ascending colon a small 2 to 3 mm sessile polyp was removed with cold forceps technique. In the transverse colon a small 2-3 mm sessile polyp was removed cold forceps technique. In the descending colon there were two 3-5 mm sessile polyps and both removed with hot snare technique. In the sigmoid colon more 2-3 mm sessile polyps were seen and removed with cold forceps technique. No diverticular disease was appreciated. There was significant AVMs sporadically seen throughout the entire colon randomly. Grade 1?2 internal hemorrhoids noted on retroflexion. SURVEILLANCE interval/FOLLOW-UP: I suspect all of these polyps would be adenomatous and so he should do another colonoscopy in 3 years. SPECIMENS: yes EBL: Minimal COMPLICATIONS: None QUALITY of prep: Excellent Procedure in detail: The patient gave written consent and was in agreement with the indications, the potential risks as well as the benefits of the procedure. They were taken to the endoscopy suite and laid in the left lateral decubitus position. A timeout was performed and anesthesia was administered which was tolerated well. I started the procedure. Digital rectal and visual examination was performed and grossly within normal limits. A well-lubricated flexible colonoscope was then introduced and passed without any notable difficulty all the way to the cecum identified by the ileocecal valve and the appendiceal orifice. The scope was then slowly withdrawn with the above-noted findings. The patient tolerated the procedure well and was taken to the PACU in hemodynamically stable condition.
[2024-04-04 10:34] VITALS: BMI 33.0
--- NOTE | 2024-04-04 10:34 | W.PM.DSUDISC ---
Date of service: 04/04/24 Time of Service: 10:34 Discharge Plan Disposition Patient Disposition: Home Condition: Good Discharge Details Attending Provider: Subhash Mendez Primary Care Provider: Serene Bales Meds and New Rx's Prescriptions: No Action amlodipine 5 mg tablet 5 mg PO BID Qty: 180 3RF atorvastatin 80 mg tablet 80 mg PO DAILY Qty: 90 3RF ezetimibe [Zetia] 10 mg tablet 10 mg PO DAILY Qty: 90 3RF metoprolol succinate 100 mg tablet extended release 24 hr 100 mg PO DAILY Qty: 90 3RF tamsulosin 0.4 mg capsule 0.8 mg PO DAILY Qty: 180 3RF Rx Instructions: Take 2 capsules daily clopidogrel [Plavix] 75 mg tablet 75 mg PO DAILY Qty: 90 3RF apple cider vinegar 600 mg capsule 600 mg PO TID pantoprazole [Protonix] 40 mg tablet,delayed release (DR/EC) 40 mg PO DAILY Qty: 90 4RF polyethylene glycol 3350 17 gram/dose powder 238 g PO ONCE Qty: 238 0RF Rx Instructions: take per colonoscopy instructions bisacodyl [Dulcolax (bisacodyl)] 5 mg tablet,delayed release (DR/EC) 5 mg PO ONCE Qty: 4 0RF Rx Instructions: take per colonoscopy instructions nitroglycerin 0.4 mg tablet, sublingual 0.4 mg sublingual Q5M PRN (Reason: chest pain) Qty: 60 0RF Rx Instructions: Take 1 tab at onset of symptoms, repeat every 5 minutes x 3 doses if chest pain persists metformin 500 mg tablet extended release 24 hr 500 mg PO BID Qty: 60 3RF (DME) OneTouch Ultra Test Strip See Rx Instructions .MEDSUPPLY Qty: 200 4RF Rx Instructions: Check blood sugar twice a day (DME) blood-glucose meter Kit See Rx Instructions .MEDSUPPLY Qty: 1 2RF Rx Instructions: Check blood sugar twice a day (DME) lancets Misc See Rx Instructions .MEDSUPPLY Qty: 200 4RF Rx Instructions: Check blood sugar twice a day Discharge Instructions Additional Instructions: FINDINGS: Multiple small polyps were found and removed today. They are nothing to worry about. This is why we do the colonoscopy. The polyps get sent to pathology for testing. Again, nothing to worry about. However, you probably need to do another colonoscopy in 3 years. Mild internal hemorrhoid disease is seen today. This is extremely common, benign and nothing needs to be done about it. Activity:: Activity as Tolerated Diet:: As Tolerated
--- NOTE | 2024-04-04 10:49 | BOWEL_PTH ---
PATIENT: Roberto Prater LOC: [facility] U#:[id number] AGE/SX: 73/M ROOM: RE04/04/[address]: Subhash Mendez : 1950 BED: DIS: 04/04/2024 SPEC #: [id number] RECD: 04/04/24 12:51 STATUS: AYLA RE #: [id number] SHAKIRA: 04/04/24 10:[address]: Subhash Mendez DEPT: Surgical Specimen RECD BY: Pinky Kauffman ENTERED: 04/04/24 12:51 SP TYPE: Bowel OTHR DR: Serene Bales, SABRINA Tissues: 1 - BIOPSY BOWEL 2 - BIOPSY BOWEL 3 - BIOPSY BOWEL 4 - BIOPSY BOWEL Procedures: GROSS AND MICRO LEVEL 4 Comments: [id number]
[2024-04-04 11:10] VITALS: BP 113/89; PULSE 63; RESP 16; TEMP 36.2; O2SAT 96
--- NOTE | 2024-04-04 11:18 | W.ANESPOSTOP ---
Postoperative Evaluation Date, Time and Location Date Performed: 04/04/24 Time Performed: 11:18 Patient Location: Day Surgery Unit Vital Signs Most Recent Imported Vital Signs: Most Recent Vital Signs Temp Pulse Resp BP Pulse Ox 36.2 C L 63 16 113/89 96 04/04/24 11:10 04/04/24 11:10 04/04/24 11:10 04/04/24 11:10 04/04/24 11:10 Pain Score Most Recent Pain Score: Most Recent Pain Score Pain Level 0 04/04/24 11:10 Assessment Mental Status: Awake (Alert & Oriented to Patient Baseline) Airway and Respiratory Function: Patent airway with normal (patient baseline) respiratory exam Cardiovascular Function: Hemodynamically Stable Hydration Status: Adequately Hydrated Nausea & Vomiting: No Nausea or Vomiting Pain: Pt. Denies Any Pain Peripheral Nerve Block: Patient did not receive a nerve block
[2024-04-04 11:40] VITALS: BP 127/74; PULSE 60; RESP 18; TEMP 36.2; O2SAT 97
== END 2024-04-04 12:06 | disposition home or self-care (01) ==
PROVIDERS: PCP Nurse Practitioner Family; Visit Provider Student in an Organized Health Care Education/Training Program
PROC: 0DJD8ZZ Inspection of Lower Intestinal Tract, Via Natural or Artificial Opening Endoscopic (ICD-10-PCS; CPT 45378; principal; 2024-04-04 10:00)
DX: Z12.11 Encounter for screening for malignant neoplasm of colon (principal); E11.9 Type 2 diabetes mellitus without complications; I25.10 Atherosclerotic heart disease of native coronary artery without angina pectoris; D12.4 Benign neoplasm of descending colon; Q27.39 Arteriovenous malformation, other site; D12.5 Benign neoplasm of sigmoid colon
CPT/HCPCS: 45385; 45380; 00123; 88305; J2003; J2704

== ENCOUNTER 2024-08-15 08:46 | Outpatient (CLI) | payer MEDICARE, SELFPAY ==
--- NOTE | 2024-08-15 08:45 | RT.EKG_ITS ---
APPROVED REPORT Exam: Resting ECG Reason for Exam: doris lewis Patient Location: O HR:66 bpm ECG Measurements Heart Rate 66 AXIS KS 146 P -16 QRSd 94 QRS 73 QT 399 T 19 QTc 418 Conclusion Sinus rhythm...normal P axis, V-rate 50- 99 Borderline T wave abnormalities...T/QRS ratio < 1/20 or flat T
== END 2024-08-15 08:47 | disposition home or self-care (01) ==
LOC: DI.CARD 08:47
PROVIDERS: PCP Nurse Practitioner Family; Visit Provider Internal Medicine Cardiovascular Disease
DX: I25.110 Atherosclerotic heart disease of native coronary artery with unstable angina pectoris (principal); R06.02 Shortness of breath
CPT/HCPCS: 93010

== ENCOUNTER → 2024-08-15 11:17 | Outpatient (BNVA) | payer MEDICARE, SELFPAY | PROVIDERS: PCP Nurse Practitioner Family; Referring Provider Nurse Practitioner Family; Visit Provider Internal Medicine Cardiovascular Disease | DX: I25.110 Atherosclerotic heart disease of native coronary artery with unstable angina pectoris (principal) | CPT/HCPCS: 93005; 99215 ==

== ENCOUNTER 2024-08-15 16:21 | Outpatient (CLI) | payer MEDICARE, SELFPAY ==
[2024-08-15 12:56] LABS: Abs Immature Grans 0.03 10^3/uL (0.0-0.06); Absolute Basophil Count 0.08 10^3/uL (0.0-0.2); Absolute Eosinophil Count 0.78 10^3/uL (0.0-0.7); Absolute Lymphocyte Count 2.94 10^3/uL (1.2-3.4); Absolute Monocyte Count 0.96 10^3/uL (0.1-0.8); Absolute Neutrophil Count 4.47 10^3/uL (1.2-6.7); Basophils % 0.9 %; Eosinophils % 8.4 %; HCT 49.3 % (40.0-50.0); HGB 15.9 g/dL (13.5-17.5); Immature Grans % 0.3 %; Lymphocytes % 31.7 %; MCHC 32.3 % (32.0-36.0); MCV 87 fL (80-95); MPV 9.7 fL (8.0-11.0); Monocytes % 10.4 %; Neutrophils % 48.3 %; Platelet Count 265 10^3/uL (130-400); RBC 5.68 10^6/uL (4.36-5.78); RDW 13.4 % (11.8-14.1); RDW-SD 42.4 fL; WBC 9.26 10^3/uL (4.4-10.8)
[2024-08-15 13:06] LABS: Anion Gap 6.6 mmol/L (3-11); BUN 12 mg/dL (7-18); CO2 28.4 mmol/L (21.0-32.0); CREATININE 1.1 mg/dL (0.70-1.30); Chloride 107 mmol/L (98-107); Estimated GFR 71.32 (mL/min/1.73m2); Glucose 149 mg/dL (74-106); Potassium 4.3 mmol/L (3.5-5.1); Sodium 142 mmol/L (136-145)
[2024-08-15 13:09] LABS: INR 1.1 (0.9-1.1); Prothrombin Time 10.7 sec (9.1-11.1)
== END 2024-08-15 16:22 | disposition home or self-care (01) ==
LOC: LBO 16:23
PROVIDERS: PCP Nurse Practitioner Family; Visit Provider Internal Medicine Cardiovascular Disease
DX: Z01.812 Encounter for preprocedural laboratory examination (principal); I25.110 Atherosclerotic heart disease of native coronary artery with unstable angina pectoris; R06.09 Other forms of dyspnea; I21.4 Non-ST elevation (NSTEMI) myocardial infarction; Z95.1 Presence of aortocoronary bypass graft; Z95.5 Presence of coronary angioplasty implant and graft; I25.10 Atherosclerotic heart disease of native coronary artery without angina pectoris
CPT/HCPCS: 36415; 80051; 82947; 84520; 93005; 99215; 82565; 85025; 85610; 85730

== ENCOUNTER 2024-12-26 03:33 | Outpatient (CLI) | payer MEDICARE, SELFPAY ==
[2024-12-26 14:06] LABS: Calculated LDL 57 mg/dL (<100); Cholesterol 122 mg/dL (<200); HDL Cholesterol 41 mg/dL (>or=40); Triglyceride 123 mg/dL (<150); Vitamin B12 310 pg/mL (193-986)
[2024-12-26 14:23] LABS: Uric Acid 8.6 mg/dL (3.5-7.2)
== END 2024-12-26 03:34 | disposition home or self-care (01) ==
LOC: LOS 03:34
PROVIDERS: PCP Nurse Practitioner Family; Visit Provider Nurse Practitioner Family
DX: M10.9 Gout, unspecified (principal); K21.9 Gastro-esophageal reflux disease without esophagitis; I25.110 Atherosclerotic heart disease of native coronary artery with unstable angina pectoris
CPT/HCPCS: 36415; 80061; 82607; 84550